=== PATIENT | female | born 1960 | race Caucasian/White ===

== ENCOUNTER 2017-07-20 19:51 | Inpatient (IN) | payer SELFPAY ==
[~2017-07-20] VITALS: Ht 154.9 cm; Wt 74.3 kg
[2017-07-20] VITALS (7 sets, daily range): BP systolic 171–185; BP diastolic 90–95; PULSE 68–87; RESP 16–24; TEMP 98.4; O2SAT 97–98
[2017-07-20] MEDS ORDERED: SODIUM CHLORIDE 0.9% FLUSH 10 ML FLUSH IVF PRN (20:00)
--- NOTE | 2017-07-20 20:11 | RADRPT ---
EXAM DATE/TIME: 07/20/2017 20:04 [facility] COMPARISON: No previous studies available for comparison. INDICATIONS : Right facial droop and weakness. RADIATION DOSE: 35.27 CTDIvol (mGy) MEDICAL HISTORY : Non-responsive. SURGICAL HISTORY : Non-responsive. ENCOUNTER: Initial ACUITY: 1 day PAIN SCALE: 0/10 LOCATION: cranial TECHNIQUE: Multiple contiguous axial images were obtained of the head. Using automated exposure control and adj ustment of the mA and/or kV according to patient size, radiation dose was kept as low as reasonably a chievable to obtain optimal diagnostic quality images. DICOM format image data is available electro nically for review and comparison. FINDINGS: CEREBRUM: The ventricles are normal for age. No evidence of midline shift, mass lesion, hemorrhage or acute in farction. No extra-axial fluid collections are seen. POSTERIOR FOSSA: The cerebellum and brainstem are intact. The 4th ventricle is midline. The cerebellopontine angle i s unremarkable. EXTRACRANIAL: The visualized portion of the orbits is intact. SKULL: The calvaria is intact. No evidence of skull fracture. CONCLUSION: No acute disease. No evidence of focal mass, edema or hemorrhage. Jack Mae MD on July 20, 2017 at 20:08 Board Certified Radiologist. This report was verified electronically.
--- NOTE | 2017-07-20 20:15 | PD ---
HPI Chief Complaint: cva Time Seen by Provider: 19:59 Travel History International Travel<30 days: No Contact w/Intl Traveler<30days: No Traveled to known affect area: No History of Present Illness HPI 57-year-old female presents to the emergency department by private transportation the care of family for evaluation of right-sided weakness since last evening. According the patient last evening patient started noticing that she was having some weakness of the right side and some balance/gait disturbance and dizziness. No headache no visual disturbance no change in mentation no change in speech or difficulty swallowing no chest pain no palpitations no shortness of breath no left upper extremity or left lower extremity numbness tingling or weakness. Patient stated this morning symptoms seem to have worsened and has had approximately 4 episodes of vomiting throughout the day with increased dizziness and then this evening around 7:15 fell after getting up from a nap and had difficulty attempting to get up without assistance. Patient has had difficulty using her right upper extremity and right hand. Patient is left-handed. Patient denies personal history of hypertension dyslipidemia CAD rhythm disturbance diabetes and admits to tobaccoism. Patient rarely consumes alcohol and has not had any alcohol the last several days. Niece who presents with the patient states she last saw her normal on Friday afternoon and this evening when she picked her up noticed for the first time a right facial droop. Patient's other niece last evening noticed that she was having balance disturbance in gait disturbance but patient put these symptoms off thinking she had a sinus infection. Patient's had no fever or chills. Patient denies other concerns or complaints. With fall this evening she did not hit her head did not have loss of consciousness did not injure her neck or does not experience any neck pain or back pain. FOR[facility]LY [facility] Past Medical History Narrative Medical Denies past medical history other than seasonal allergies and rhinosinusitis denies surgical history positive tobacco use rare alcohol use nursing notes reviewed Social History Tobacco Use: Yes Allergies-Medications (Allergen,Severity, Reaction): Coded Allergies: No Known Allergies (Unverified , 07/20/17) Reported Meds & Prescriptions Reported Meds & Active Scripts Active Review of Systems Except as stated in HPI: all other systems reviewed are Neg General / Constitutional: No: Fever, Chills Eyes: No: Diploplia, Blurred Vision, Photophobia, Blind Spots, Visual changes HENT: Positive: Lightheadedness, Congestion, No: Headaches, Vertigo, Neck Pain Cardiovascular: No: Chest Pain or Discomfort, Palpitations, Diaphoresis, Syncope Respiratory: No: Shortness of Breath Gastrointestinal: Positive: Nausea, Vomiting (x4), No: Hematemesis, Hematochezia Genitourinary: No: Dysuria, Flank Pain Musculoskeletal: No: Myalgias, Arthralgias Skin: No Rash Neurologic: Positive: Weakness, Dizziness, Focal Abnormalities (right upper extremity right lower extremity weakness with right facial droop), Ataxia, No: Syncope, Headache, Change in Mentation, Slurred Speech, Paresthesia Psychiatric: No: Anxiety Hematologic/Lymphatic: No: Easy Bruising Physical Exam Narrative GENERAL: Well-developed well-nourished female in no acute distress no respiratory distress; GCS 15; blood pressure 185/95; 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 HEAD: Atraumatic. Normocephalic. EYES: Pupils equal and round. Extraocular muscles intact. No scleral icterus. No injection or drainage. ENT: No nasal bleeding or discharge. Mucous membranes pink and moist. Airway is patent. Tongue is midline. Right facial droop. NECK: Trachea midline. No JVD. CARDIOVASCULAR: Regular rate and rhythm. RESPIRATORY: No accessory muscle use. Clear to auscultation. Breath sounds equal bilaterally. GASTROINTESTINAL: Abdomen soft, non-tender, nondistended. Hepatic and splenic margins not palpable. MUSCULOSKELETAL: Extremities without clubbing, cyanosis, or edema. No obvious deformities. NEUROLOGICAL: Awake and alert. GCS 15. No obvious cranial nerve deficits except right facial droop. Motor grossly within normal limits except for right upper extremity 4/5 and right lower extremity 4-5/ 5. Five out of 5 muscle strength in the (L) arm and (L) leg. Right upper extremity pronator drift. Right upper and lower extremity limb ataxia. Sensory exam intact. Normal speech. PSYCHIATRIC: Appropriate mood and affect; insight and judgment normal. Data Data Last Documented VS Orders Orders Electrocardiogram (07/20/17 19:59) Prothrombin Time / Inr (Pt) (07/20/17 19:59) Act Partial Throm Time (Ptt) (07/20/17 19:59) Complete Blood Count With Diff (07/20/17 19:59) Basic Metabolic Panel (Bmp) (07/20/17 19:59) Creatine Kinase (Cpk) (07/20/17 19:59) Troponin I (07/20/17 19:59) Urinalysis - C+S If Indicated (07/20/17 19:59) Ct Brain W/O Iv Contrast(Rout) (07/20/17 19:59) Chest, Single Ap (07/20/17 19:59) Ecg Monitoring (07/20/17 19:59) Iv Access Insert/Monitor (07/20/17 19:59) Oximetry (07/20/17 19:59) Sodium Chloride 0.9% Flush (Ns Flush) (07/20/17 20:00) Aspirin (Aspirin) (07/20/17 20:30) Sodium Chlor 0.9% 1000 Ml Inj (Ns 1000 M (07/20/17 20:30) Head Of Bed (07/20/17 20:22) Admit Order (Ed Use Only) (07/20/17 ) Silk Screen Operator / Telemetry [id number] (07/20/17 21:11) Activity Bed Rest (07/20/17 21:11) Notify Dr: Other (07/20/17 21:11) Consult Neurology (07/20/17 ) Labs Laboratory Tests Test 07/20/17 19:55 07/20/17 21:07 White Blood Count 10.6 TH/MM3 Red Blood Count 5.21 MIL/MM3 Hemoglobin 16.0 GM/DL Hematocrit 47.3 % Mean Corpuscular Volume 90.9 FL Mean Corpuscular Hemoglobin 30.8 PG Mean Corpuscular Hemoglobin Concent 33.9 % Red Cell Distribution Width 12.8 % Platelet Count 339 TH/MM3 Mean Platelet Volume 6.9 FL Neutrophils (%) (Auto) 80.6 % Lymphocytes (%) (Auto) 14.2 % Monocytes (%) (Auto) 4.5 % Eosinophils (%) (Auto) 0.2 % Basophils (%) (Auto) 0.5 % Neutrophils # (Auto) 8.5 TH/MM3 Lymphocytes # (Auto) 1.5 TH/MM3 Monocytes # (Auto) 0.5 TH/MM3 Eosinophils # (Auto) 0.0 TH/MM3 Basophils # (Auto) 0.0 TH/MM3 CBC Comment DIFF FINAL Differential Comment Prothrombin Time 10.3 SEC Prothromb Time International Ratio 1.0 RATIO Activated Partial Thromboplast Time 26.1 SEC Blood Urea Nitrogen 13 MG/DL Creatinine 0.95 MG/DL Random Glucose 118 MG/DL Calcium Level 9.7 MG/DL Sodium Level 138 MEQ/L Potassium Level 4.2 MEQ/L Chloride Level 103 MEQ/L Carbon Dioxide Level 26.4 MEQ/L Anion Gap 9 MEQ/L Estimat Glomerular Filtration Rate 61 ML/MIN Total Creatine Kinase 52 U/L Troponin I LESS THAN 0.02 NG/ML Urine Color YELLOW Urine Turbidity CLEAR Urine pH 5.0 Urine Specific Luana 1.012 Urine Protein NEG mg/dL Urine Glucose (UA) NEG mg/dL Urine Ketones NEG mg/dL Urine Occult Blood NEG Urine Nitrite NEG Urine Bilirubin NEG Urine Urobilinogen LESS THAN 2.0 MG/DL Urine Leukocyte Esterase TRACE Urine RBC 1 /hpf Urine WBC 2 /hpf Urine Squamous Epithelial Cells 2 /hpf Urine Bacteria RARE /hpf Microscopic Urinalysis Comment CATH-CULTURE IND Urine Opiates Screen NEG Urine Barbiturates Screen NEG Urine Amphetamines Screen NEG Urine Benzodiazepines Screen NEG Urine Cocaine Screen NEG Urine Cannabinoids Screen NEG MDM Medical Decision Making Medical Screen Exam Complete: Yes Emergency Medical Condition: Yes Medical Record Reviewed: Yes Interpretation(s) EKG: Normal sinus rhythm rate 72 left anterior fascicular block no acute ST elevation injury pattern or ectopy noted CBC & BMP Diagram 07/20/17 19:[address] 07/20/171958 Signed Impressions: Service Date/Time: Thursday, July 20, 2017 20:04 - CONCLUSION: No acute disease. No evidence of focal mass, edema or hemorrhage. Jack Mae MD Vital Signs Date Time Temp Pulse Resp B/P (MAP) Pulse Ox O2 Delivery O2 Flow Rate FiO2 07/20/17 20:23 72 16 171/91 (117) Room Air 97 07/20/17 20:05 86 17 177/94 (121) Room Air 96 07/20/17 19:54 98.4 87 17 185/95 (125) 97 Differential Diagnosis CVA-acute versus subacute, hypertensive urgency, arrhythmia Narrative Course @ 19:59 57-year-old female presents with new onset right-sided weakness affecting the right upper extremity and right lower extremity with right upper extremity pronator drift and right upper and lower extremity limb ataxia as well as right facial droop; weakness and balance disturbance onset last evening with persistent symptoms today with fall this evening at 7:15 PM after awakening from nap, niece at bedside noted facial droop this evening but hasn't seen patient since Friday; reports other family members noted gait and balance disturbance since yesterday. Patient's had no headache but has had dizziness and nausea and vomiting x 4 throughout the day; patient reports symptoms since last night. Patient sent for stat CT brain noncontrast. In view of onset of symptoms last evening is outside therapeutic window for thrombolytics; NIHSS:5, partial paralysis of lower face, right upper extremity drift, slight right lower extremity drift, RUE/RLE limb ataxia. @ 20:[address] exam unchanged; BP: 178/88. Patient with family at bedside informed CT brain noncontrast reveals no acute abnormality; clinically patient has presented with right facial droop and right- sided weakness for acute/subacute CVA. EKG was sinus rhythm rate 70 to left anterior fascicular block no acute ST elevation injury pattern or ectopy noted. Patient's case has been discussed with neurology and patient is not a thrombolytic candidate in view of duration of symptoms. Patient will be started on aspirin 325 mg first dose now, maintained with head of bed flat, maintenance IV fluids normal saline at 70 cc per hour, and will be admitted to medicine service with consult to neurology and MR studies in the a.m. Discussed with [facility] MD, Dr Dodd, for admission Physician Communication Physician Communication Call placed to Neurology --Dr Vallejo -- not tpa candidate --start aspirin 325 now , neurology consult and MR studies in the AM; accepted by [facility] service for admission Diagnosis Primary Impression: CVA (cerebral vascular accident) Admitting Information Admitting Physician Requests: Admit Scripts Aspirin (Px Aspirin) 325 Mg Tab 325 MG PO DAILY for Prevent Blood Clot, #30 TAB Prov: Dale Taveras MD 07/23/17 Atorvastatin (Lipitor) 10 Mg Tab 10 MG PO HS for Cholesterol Management, #30 TAB Prov: Dale Taveras MD 07/23/17 June Mejias MD Jul 20, 2017 20:15
[2017-07-20 20:19] LABS: AUTOMATED NEUTROPHIL # 8.5 TH/MM3 (1.8-7.7); BASOPHIL % 0.5 % (0.0-2.0); EOSINOPHIL % 0.2 % (0.0-4.0); HEMATOCRIT 47.3 % (35.0-46.0); LYMPH % 14.2 % (9.0-44.0); LYMPHOCYTE # 1.5 TH/MM3 (1.0-4.8); MEAN CELL VOLUME 90.9 FL (80.0-100.0); MEAN CORPUSCULAR HEMOGLOBIN 30.8 PG (27.0-34.0); MEAN CORPUSCULAR HGB CONC 33.9 % (32.0-36.0); MEAN PLATELET VOLUME 6.9 FL (7.0-11.0); MONO % 4.5 % (0.0-8.0); MONOCYTE # 0.5 TH/MM3 (0-0.9); NEUT % 80.6 % (16.0-70.0); PLATELET COUNT 339 TH/MM3 (150-450); RED BLOOD COUNT 5.21 MIL/MM3 (4.00-5.30); RED CELL DISTRIBUTION WIDTH 12.8 % (11.6-17.2); WHITE BLOOD COUNT 10.6 TH/MM3 (4.0-11.0)
[2017-07-20] MEDS ORDERED: ASPIRIN 325 MG TAB PO ONE (20:30)
[2017-07-20] MEDS ORDERED: SODIUM CHLOR 0.9% 1000 ML INJ 1,000 ML IV SCH (20:30)
--- NOTE | 2017-07-20 20:37 | RADRPT ---
EXAM DATE/TIME: 07/20/2017 20:05 [facility] COMPARISON: No previous studies available for comparison. INDICATIONS : Possible stroke. MEDICAL HISTORY : None. SURGICAL HISTORY : None. ENCOUNTER: Initial ACUITY: 1 day PAIN SCORE: 0/10 LOCATION: Bilateral chest FINDINGS: A single view of the chest demonstrates the lungs to be symmetrically aerated without evidence of mas s, infiltrate or effusion. The cardiomediastinal contours are unremarkable. Osseous structures are intact. CONCLUSION: No acute disease. Jack Mae MD on July 20, 2017 at 20:34 Board Certified Radiologist. This report was verified electronically.
[2017-07-20 20:45] LABS: BICARBONATE 26.4 MEQ/L (21.0-32.0); BLOOD UREA NITROGEN 13 MG/DL (7-18); CALCIUM 9.7 MG/DL (8.5-10.1); CHLORIDE 103 MEQ/L (98-107); CREATININE 0.95 MG/DL (0.50-1.00); GLOMERULAR FILTRATION RATE 61 ML/MIN (>89); GLUCOSE,RANDOM 118 MG/DL (74-106); SODIUM (NA) 138 MEQ/L (136-145)
[2017-07-20 20:50] LABS: TROPONIN I LESS THAN 0.02 NG/ML (0.02-0.05)
[2017-07-20 21:10] LABS: PROTHROMBIN TIME - PATIENT 10.3 SEC (9.8-11.6)
[2017-07-20] MEDS: SODIUM CHLOR 0.9% 1000 ML INJ 1,000 ML IV SCH (21:12)
[2017-07-20] MEDS ORDERED: LACTULOSE SYRUP 20 GM/30 ML CUP PO PRN (21:15)
[2017-07-20] MEDS ORDERED: BISACODYL 10 MG SUPP RECTAL PRN (21:15)
[2017-07-20] MEDS ORDERED: MAGNESIUM HYDROXIDE SUSP 30 ML CUP PO PRN (21:15)
[2017-07-20] MEDS ORDERED: SODIUM CHLORIDE 0.9% FLUSH 10 ML FLUSH IV FLUSH PRN (21:15)
[2017-07-20] MEDS ORDERED: SENNOSIDES 8.6 MG TAB PO PRN (21:15)
[2017-07-20] MEDS ORDERED: ENALAPRILAT 1.25 MG/ML VIAL IV PUSH PRN (21:15)
[2017-07-20] MEDS ORDERED: ONDANSETRON HCL 4 MG/2 ML VIAL IVP PRN (21:15)
[2017-07-20] MEDS ORDERED: GLUCAGON 1 MG/ML VIAL OTHER PRN (21:15)
[2017-07-20] MEDS ORDERED: DEXTROSE 50% IN WATER 50 ML VIAL(D50) IV PUSH PRN (21:15)
--- NOTE | 2017-07-20 21:16 | HHI.HP ---
HPI Service [facility] Primary Care Physician No Primary Care Physician Admission Diagnosis CVA Diagnoses: (1) CVA (cerebral vascular accident) Diagnosis: Principal (2) HTN (hypertension) Diagnosis: Principal (3) Dehydration Diagnosis: Principal (4) Tobacco abuse Diagnosis: Principal Travel History International Travel<30 Days: No Contact w/Intl Traveler <30 Da: No Traveled to Known Affected Are: No History of Present Illness This is a 57-year-old left-handed female with no significant PMH who was brought to the ER by family for evaluation of right-sided weakness and facial droop. Per pt, episode of right-sided weakness and gait imbalance last night. Today, reports progression of symptoms w/ worsening right-sided weakness and subsequent fall. No head trauma or LOC. Noted by family to have right facial droop. Unclear time of symptom onset, believes last normal 07/19/17. No h/o similar symptoms in the past. +tobacco abuse. On arrival, BP 185/95, HR 87, O2 sat 97% on RA, Afebrile. CBC unremarkable except for mild hemoconcentration , hemoglobin 16. Chemistry unremarkable except for GFR 61. Troponin negative. INR 1.0. UA negative. CXR with no acute findings. CT Head negative. Dr. Vallejo consulted by ER physician, patient is not a TPA candidate as she is outside the window. Review of Systems Except as stated in HPI: all other systems reviewed are Neg ROS: 14 point review of systems otherwise negative. Past Family Social History Past Medical History PMH: None Past Surgical History PAST SURGICAL HISTORY: Tonsillectomy, Benign Breast Mass Resection Allergies: Coded Allergies: No Known Allergies (Unverified , 07/20/17) Family History PAST FAMILY HISTORY: Reviewed. No h/o DM or CAD Social History PAST SOCIAL HISTORY: Negative for alcohol or drugs. Positive for tobacco. Physical Exam Vital Signs Vital Signs Date Time Temp Pulse Resp B/P (MAP) Pulse Ox O2 Delivery O2 Flow Rate FiO2 07/20/17 20:58 70 18 184/91 (122) Room Air 98 07/20/17 20:35 77 16 97 Room Air 07/20/17 20:34 16 97 Room Air 07/20/17 20:23 72 16 171/91 (117) Room Air 97 07/20/17 20:05 86 17 177/94 (121) Room Air 96 07/20/17 19:54 98.4 87 17 185/95 (125) 97 Physical Exam PE: GENERAL: Middle-aged female in no acute distress. HEENT: PERRLA, EOMI. No scleral icterus or conjunctival pallor. No lid lag. + right-sided facial droop. CARDIOVASCULAR: Regular rate and rhythm. No obvious murmurs to auscultation. No chest tenderness to palpation. RESPIRATORY: No obvious rhonchi or wheezing. Clear to auscultation. Breath sounds equal bilaterally. GASTROINTESTINAL: Abdomen soft, non-tender, nondistended. BS normal. MUSCULOSKELETAL: Extremities without clubbing, cyanosis, or edema. No obvious deformities. NEUROLOGICAL: Awake, alert and oriented x4. RUE/RLE 4/5, LUE/LLE 5/5. +facial droop as above. Laboratory Laboratory Tests Test 07/20/17 19:55 White Blood Count 10.6 Red Blood Count 5.21 Hemoglobin 16.0 Hematocrit 47.3 Mean Corpuscular Volume 90.9 Mean Corpuscular Hemoglobin 30.8 Mean Corpuscular Hemoglobin Concent 33.9 Red Cell Distribution Width 12.8 Platelet Count 339 Mean Platelet Volume 6.9 Neutrophils (%) (Auto) 80.6 Lymphocytes (%) (Auto) 14.2 Monocytes (%) (Auto) 4.5 Eosinophils (%) (Auto) 0.2 Basophils (%) (Auto) 0.5 Neutrophils # (Auto) 8.5 Lymphocytes # (Auto) 1.5 Monocytes # (Auto) 0.5 Eosinophils # (Auto) 0.0 Basophils # (Auto) 0.0 CBC Comment DIFF FINAL Differential Comment Prothrombin Time 10.3 Prothromb Time International Ratio 1.0 Activated Partial Thromboplast Time 26.1 Blood Urea Nitrogen 13 Creatinine 0.95 Random Glucose 118 Calcium Level 9.7 Sodium Level 138 Potassium Level 4.2 Chloride Level 103 Carbon Dioxide Level 26.4 Anion Gap 9 Estimat Glomerular Filtration Rate 61 Total Creatine Kinase 52 Troponin I LESS THAN 0.02 Result Diagram: 07/20/17195407/20/171954 Caprini VTE Risk Assessment Caprini VTE Risk Assessment: No/Low Risk (score <= 1) Caprini Risk Assessment Model Point Value = 1 Point Value = 2 Point Value = 3 Point Value = 5 Age 41-60 Minor surgery BMI > 25 kg/m2 Swollen legs Varicose veins or History of unexplained or recurrent spontaneous Oral contraceptives or hormone replacement Sepsis (< 1 month) Serious lung disease, including pneumonia (< 1 month) Abnormal pulmonary function Acute myocardial infarction Congestive heart failure (< 1 month) History of inflammatory bowel disease Medical patient at bed rest Age 61-74 Arthroscopic surgery Major open surgery (> 45 min) Laparoscopic surgery (> 45 min) Malignancy Confined to bed (> 72 hours) Immobilizing plaster cast Central venous access Age >= 75 History of VTE Family history of VTE Factor V Leiden Prothrombin [id number] Lupus anticoagulant Anticardiolipin antibodies Elevated serum homocysteine Heparin-induced thrombocytopenia Other congenital or acquired thrombophilia Stroke (< 1 month) Elective arthroplasty Hip, pelvis, or leg fracture Acute spinal cord injury (< 1 month) Prophylaxis Regimen Total Risk Factor Score Risk Level Prophylaxis Regimen 0-1 Low Early ambulation 2 Moderate Order ONE of the following: *Sequential Compression Device (SCD) *Heparin 5000 units SQ BID 3-4 Higher Order ONE of the following medications: *Heparin 5000 units SQ TID *Enoxaparin/Lovenox 40 mg SQ daily (WT < 150 kg, CrCl > 30 mL/min) *Enoxaparin/Lovenox 30 mg SQ daily (WT < 150 kg, CrCl > 10-29 mL/min) *Enoxaparin/Lovenox 30 mg SQ BID (WT < 150 kg, CrCl > 30 mL/min) AND/OR *Sequential Compression Device (SCD) 5 or more Highest Order ONE of the following medications: *Heparin 5000 units SQ TID (Preferred with Epidurals) *Enoxaparin/Lovenox 40 mg SQ daily (WT < 150 kg, CrCl > 30 mL/min) *Enoxaparin/Lovenox 30 mg SQ daily (WT < 150 kg, CrCl > 10-29 mL/min) *Enoxaparin/Lovenox 30 mg SQ BID (WT < 150 kg, CrCl > 30 mL/min) AND *Sequential Compression Device (SCD) Assessment and Plan Problem List: (1) CVA (cerebral vascular accident) ICD Code: I63.9 - Cerebral infarction, unspecified Status: Acute (2) HTN (hypertension) ICD Code: I10 - Essential (primary) hypertension (3) Dehydration ICD Code: E86.0 - Dehydration (4) Tobacco abuse ICD Code: Z72.0 - Tobacco use Assessment and Plan A/P: 1. CVA: right-sided weakness, right facial droop starting 07/19/17, +ongoing symptoms. CT Head w/ no acute findings, images reviewed by me. Dr. Vallejo consulted, outside TPA window, will eval in am. Check MRI/MRA to eval for underlying stroke, Check Echo to eval for possible thromboembolic event, Check Lipid profile, Hgb A1c, UDS. NPO, IVF, HOB flat, Consult PT/Speech for eval/ tx. Neuro checks. ASA, Statin. 2. HTN: BP 180's on arrival, allow for permissive HTN in light of acute CVA. Antihypertensives prn for BP >220 systolic. Monitor closely. 3. Dehydration: GFR 61, U/a negative for UTI. IVF for hydration, repeat labs in am. 4. Tobacco Abuse: Pt counselled. Ativan prn. No NicoDerm to avoid vasoconstriction. 5. DVT Prophylaxis: SCD/Teds. 6. Social work for d/c planning as needed. 7. Labs/imaging/records reviewed by me. Case discussed at length w/ ER physician. Physician Certification 2 Midnight Certification Type: Admission for Inpatient Services Order for Inpatient Services The services are ordered in accordance with Medicare regulations or non- Medicare payer requirements, as applicable. In the case of services not specified as inpatient-only, they are appropriately provided as inpatient services in accordance with the 2-midnight benchmark. Estimated LOS (days): 2 days is the estimated time the patient will need to remain in the hospital, assuming treatment plan goals are met and no additional complications. Post-Hospital Plan: Not yet determined Cristela Dodd MD Jul 20, 2017 21:16
[2017-07-20 21:25] LABS: BACTERIA, URINE RARE /hpf; BILIRUBIN, URINE NEG (NEG); BLOOD, URINE NEG (NEG); GLUCOSE,URINE NEG (NEG); KETONE, URINE NEG (NEG); NITRITE,URINE NEG (NEG); SQUAMOUS EPITHELIAL CELL URINE 2 /hpf (0-5); URINE COLOR YELLOW (YELLW/STRAW); URINE LEUKOCYTE ESTERASE TRACE (NEG)
[2017-07-21] VITALS (7 sets, daily range): BP systolic 144–170; BP diastolic 78–84; PULSE 68–82; RESP 17–20; TEMP 97.6–98.5; O2SAT 92–97
[2017-07-21] MEDS ORDERED: ACETAMINOPHEN 1000 MG/100 ML 65 ML IV ONE (04:30)
[2017-07-21] MEDS: INSULIN ASPART SUPPLEMENTAL SCALE SQ SCH ×5 (07:33→21:00)
[2017-07-21] MEDS: SODIUM CHLORIDE 0.9% FLUSH 10 ML FLUSH IV FLUSH SCH ×3 (07:34→21:00)
[2017-07-21] MEDS: ASPIRIN 325 MG TAB PO SCH ×2 (07:34→14:34)
[2017-07-21] MEDS: DOCUSATE SODIUM 50 MG/SENNA 8.6 MG TAB PO SCH ×2 (07:34→21:00)
[2017-07-21 07:45] LABS: BASOPHIL % 0.3 % (0.0-2.0); EOSINOPHIL % 0.2 % (0.0-4.0); HEMATOCRIT 41.3 % (35.0-46.0); LYMPHOCYTE # 1.4 TH/MM3 (1.0-4.8); MEAN CELL VOLUME 90.5 FL (80.0-100.0); MEAN CORPUSCULAR HEMOGLOBIN 30.6 PG (27.0-34.0); MEAN CORPUSCULAR HGB CONC 33.8 % (32.0-36.0); MEAN PLATELET VOLUME 7.1 FL (7.0-11.0); MONO % 4.8 % (0.0-8.0); MONOCYTE # 0.5 TH/MM3 (0-0.9); NEUT % 80.7 % (16.0-70.0); PLATELET COUNT 290 TH/MM3 (150-450); RED BLOOD COUNT 4.56 MIL/MM3 (4.00-5.30); WHITE BLOOD COUNT 9.9 TH/MM3 (4.0-11.0)
[2017-07-21 08:16] LABS: ALBUMIN 3.7 GM/DL (3.4-5.0); ALKALINE PHOSPHATASE 73 U/L (45-117); ALT (GPT) 15 U/L (10-53); AST (GOT) 7 U/L (15-37); BICARBONATE 27.6 MEQ/L (21.0-32.0); BLOOD UREA NITROGEN 14 MG/DL (7-18); CALCIUM 8.8 MG/DL (8.5-10.1); CHLORIDE 105 MEQ/L (98-107); CHOLESTEROL 196 MG/DL (120-200); CHOLESTEROL/ HDL RATIO 3.46 RATIO; CREATININE 0.74 MG/DL (0.50-1.00); GLOMERULAR FILTRATION RATE 81 ML/MIN (>89); GLUCOSE,RANDOM 102 MG/DL (74-106); HDL CHOLESTEROL 56.6 MG/DL (40.0-60.0); LDL CHOLESTEROL 127 MG/DL (0-99); SODIUM (NA) 140 MEQ/L (136-145); TOTAL BILIRUBIN ADULT 0.7 MG/DL (0.2-1.0); TOTAL PROTEIN 7.2 GM/DL (6.4-8.2); TRIGLYCERIDES 60 MG/DL (42-150)
[2017-07-21] MEDS ORDERED: LORazepam 2 MG/ML VIAL IV PUSH ONE ×2 (09:15→11:30)
[2017-07-21] MEDS: SODIUM CHLOR 0.9% 1000 ML INJ 1,000 ML IV SCH ×2 (10:38→19:00)
--- NOTE | 2017-07-21 11:58 | RADRPT ---
EXAM DATE/TIME: 07/21/2017 11:13 [facility] COMPARISON: No previous studies available for comparison. INDICATIONS : Right sided numbness. MEDICAL HISTORY : None. SURGICAL HISTORY : Tonsillectomy. Rt breast lumpectomy ENCOUNTER: Subsequent ACUITY: 2 day PAIN SCORE: 0/10 LOCATION: cranial Please note a normal MRA of the brain does not entirely exclude the possibility of a small aneurysm, nor the possibility of distal intracranial vessel disease. TECHNIQUE: 3D time of flight MRA was performed. Source images, multiplanar STS MIP, and 3D volum e MIP reconstructions were reviewed. FINDINGS: There is excellent visualization of the major intracranial arteries out to the second-order branch ve ssels. There is no evidence for aneurysm, vessel truncation or stenosis, and no evidence for vascula r malformation. CONCLUSION: Negative MRA of the brain. Nikhil García MD FACR on July 21, 2017 at 11:53 Board Certified Radiologist. This report was verified electronically.
--- NOTE | 2017-07-21 12:24 | RADRPT ---
EXAM DATE/TIME: 07/21/2017 11:13 [facility] COMPARISON: No previous studies available for comparison. INDICATIONS : Right sided numbness. MEDICAL HISTORY : None. SURGICAL HISTORY : Tonsillectomy. Rt breast lumpectomy. ENCOUNTER: Subsequent ACUITY: 2 day PAIN SCORE: 0/10 LOCATION: cranial TECHNIQUE: Multiplanar, multisequence MRI of the brain was performed without contrast. FINDINGS: There are 2 focal areas of restricted diffusion left hemisphere. One involves the left posterior meme lamus including the posterior limb of internal capsule. The second anteriorly sparing the anterior l imb of the internal capsule. The right hemisphere is unremarkable There is no parenchymal hemorrhage associated with this. 2 punctate focal hemosiderin deposits left hemisphere above the ischemic changes. Ventricle size is appropriate. Mild periventricular white matter changes are noted. No extra-axial fluid collection appreciated. CONCLUSION: Restricted diffusion thalamus left side consistent with acute ischemic event These are 2 separate areas. Nikhil García MD FACR on July 21, 2017 at 12:19 Board Certified Radiologist. This report was verified electronically.
--- NOTE | 2017-07-21 12:59 | HHI.PR ---
Subjective Remarks Follow-up CVA. Currently sedated easily arousable following simple commands. Patient received Ativan 2 mg during MRI. Discussed with RN Objective Vitals Vital Signs Date Time Temp Pulse Resp B/P (MAP) Pulse Ox O2 Delivery O2 Flow Rate FiO2 07/21/17 08:04 96 21 07/21/17 08:00 98.3 75 20 169/80 (109) 92 07/21/17 04:37 97.9 77 18 144/78 (100) 96 07/21/17 01:44 97.6 68 17 164/79 (107) 97 07/20/17 22:12 07/20/17 21:55 68 24 176/90 (118) Room Air 96 07/20/17 21:29 98 07/20/17 20:58 70 18 184/91 (122) Room Air 98 07/20/17 20:35 77 16 97 Room Air 07/20/17 20:34 16 97 Room Air 07/20/17 20:23 72 16 171/91 (117) Room Air 97 07/20/17 20:05 86 17 177/94 (121) Room Air 96 07/20/17 19:54 98.4 87 17 185/95 (125) 97 I/O 07/20/17 07/20/17 07/20/17 07/21/17 07/21/17 07/21/17 07:00 15:00 23:00 07:00 15:00 23:00 Intake Total 720 ml Balance 720 ml Intake IV Total 720 ml Result Diagram: 07/21/17 0652 07/21/17 0652 Imaging Last Impressions Head Magnetic Resonance Angiography 07/21/17 0000 Signed Impressions: Service Date/Time: Friday, July 21, 2017 11:13 - CONCLUSION: Negative MRA of the brain. Nikhil García MD FACR Brain MRI 07/21/17 0000 Signed Impressions: Service Date/Time: Friday, July 21, 2017 11:13 - CONCLUSION: Restricted diffusion thalamus left side consistent with acute ischemic event These are 2 separate areas. Nikhil García MD FACR Head CT 07/20/171958 Signed Impressions: Service Date/Time: Thursday, July 20, 2017 20:04 - CONCLUSION: No acute disease. No evidence of focal mass, edema or hemorrhage. Jack Mae MD Chest X-Ray 07/20/171958 Signed Impressions: Service Date/Time: Thursday, July 20, 2017 20:05 - CONCLUSION: No acute disease. Jack Mae MD Objective Remarks GENERAL: Middle-aged female in no acute distress. HEENT: PERRLA, EOMI. No scleral icterus or conjunctival pallor. No lid lag. + right-sided facial droop. CARDIOVASCULAR: Regular rate and rhythm. No obvious murmurs to auscultation. No chest tenderness to palpation. RESPIRATORY: No obvious rhonchi or wheezing. Clear to auscultation. Breath sounds equal bilaterally. GASTROINTESTINAL: Abdomen soft, non-tender, nondistended. BS normal. MUSCULOSKELETAL: Extremities without clubbing, cyanosis, or edema. No obvious deformities. NEUROLOGICAL: Sedated easily arousable following simple commands. Right facial droop. Weak right upper and right lower extremities. Procedures none A/P Problem List: (1) CVA (cerebral vascular accident) ICD Code: I63.9 - Cerebral infarction, unspecified Status: Acute (2) HTN (hypertension) ICD Code: I10 - Essential (primary) hypertension (3) Dehydration ICD Code: E86.0 - Dehydration (4) Tobacco abuse ICD Code: Z72.0 - Tobacco use Assessment and Plan 1. CVA: right-sided weakness, right facial droop starting 07/19/17, +ongoing symptoms. CT Head w/ no acute findings, images reviewed by me. Dr. Vallejo consulted, outside TPA window. MRI with left thalamic ischemic event. LDL 127. A1c 5. Continue stroke workup and follow-up echocardiogram and monitor on telemetry. Continue aspirin and statin. Permissive hypertension 2. HTN: BP 180's on arrival, allow for permissive HTN in light of acute CVA. Antihypertensives prn for BP >220 systolic. Monitor closely. 3. Dehydration: GFR 61, U/a negative for UTI. IVF for hydration, repeat labs in am. 4. Tobacco Abuse: Pt counselled. Ativan prn. No NicoDerm to avoid vasoconstriction. 5. Toxic encephalopathy after receiving Ativan prior to MRI. Neurochecks DVT Prophylaxis: SCD/Teds. Pharmacological prophylaxis if okay with neurology Discharge Planning Not ready for discharge stroke workup underway Dale Taveras MD Jul 21, 2017 12:59
--- NOTE | 2017-07-21 15:17 | RADRPT ---
EXAM DATE/TIME: 07/21/2017 12:39 [facility] COMPARISON: No previous studies available for comparison. INDICATIONS : Stenosis. MEDICAL HISTORY : CVA. Migraines. Respiratory disorders. Tobacco use. SURGICAL HISTORY : Tonsillectomy. Fatty breast mass removed. ENCOUNTER: Initial ACUITY: 1 day PAIN SCORE: 0/10 LOCATION: Bilateral neck PEAK SYSTOLIC VELOCITIES (cm/sec): ICA/CCA RATIO: Right: 1.5 Left: 0.9 ICA: Right: 109 Left: 72 CCA: Right: 72 Left: 81 ECA: Right: 117 Left: 69 VERTEBRAL: Right: 55 antegrade Left: 54 antegrade Elevated flow velocities and ICA/CCA ratios have been found to correlate with increased degrees of vessel stenosis, calculated as percentage of diameter relative to a normal segment of distal ICA/CCA FINDINGS: RIGHT CAROTID: Mild calcified plaque is identified in the right carotid bifurcation and origin of the internal carot id artery. No significant stenosis is visualized. The waveforms are within normal limits. LEFT CAROTID: No significant stenosis is visualized. The waveforms are within normal limits. VERTEBRAL ARTERIES: Antegrade flow is seen in both vertebral arteries. MISCELLANEOUS: None. CONCLUSION: 1. Mild calcified plaque right carotid bifurcation. 2. No evidence of hemodynamically significant stenosis. 3. Antegrade flow both vertebral arteries. Jack Mae MD on July 21, 2017 at 15:13 Board Certified Radiologist. This report was verified electronically.
--- NOTE | 2017-07-21 16:43 | ECHRPT ---
Indication: CVA/TIA CONCLUSIONS The left ventricular systolic function is normal with an estimated ejection fraction in the range of 60-65%. Normal left ventricular size. Wall thickness is normal. No regional wall motion abnormalities are present. BP: 144 / 78 HR: 77 Rhythm: Sinus MEASUREMENTS (Male / Female) Normal Values Technical Quality:Poor 2D ECHO LV Diastolic Diameter PLAX 4.2 cm 4.2 - 5.9 / 3.9 - 5.3 cm LV Systolic Diameter PLAX 2.9 cm IVS Diastolic Thickness 1.1 cm 0.6 - 1.0 / 0.6 - 0.9 cm LVPW Diastolic Thickness 1.1 cm 0.6 - 1.0 / 0.6 - 0.9 cm LV Relative Wall Thickness 0.5 RV Internal Dim ED PLAX 1.9 cm LVOT Diameter 1.9 cm LV Ejection Fraction MOD 4C 64.0 % LV Cardiac Index MOD 4C 2384.0 cm/minm LV Ejection Fraction 4C AL 66.1 % LV Cardiac Index 4C AL 2548.9 cm/minm M-MODE Aortic Root Diameter MM 2.6 cm LA Systolic Diameter MM 2.7 cm LA Ao Ratio MM 1.0 AV Cusp Separation MM 1.9 cm DOPPLER AV Peak Velocity 156.0 cm/s AV Peak Gradient 9.7 mmHg LVOT Peak Velocity 105.0 cm/s LVOT Peak Gradient 4.4 mmHg AV Area Cont Eq pk 1.9 cm MV Area PHT 3.3 cm Mitral E Point Velocity 63.2 cm/s Mitral A Point Velocity 101.0 cm/s Mitral E to A Ratio 0.6 LV E' Lateral Velocity 8.8 cm/s Mitral E to LV E' Lateral Ratio 7.2 LV E' Septal Velocity 8.1 cm/s Mitral E to LV E' Septal Ratio 7.8 PV Peak Velocity 106.0 cm/s PV Peak Gradient 4.5 mmHg FINDINGS LEFT VENTRICLE The left ventricular systolic function is normal with an estimated ejection fraction in the range of 60-65%. Normal left ventricular size. Wall thickness is normal. No regional wall motion abnormalities are present. RIGHT VENTRICLE Normal right ventricular size and systolic function. LEFT ATRIUM The left atrial size is normal. RIGHT ATRIUM The right atrial size is normal. ATRIAL SEPTUM Normal atrial septal thickness without atrial level shunting by limited color doppler interrogation. AORTA The aortic root and proximal ascending aorta are normal in size on limited imaging. MITRAL VALVE Structurally normal mitral valve. No mitral valve stenosis or regurgitation. AORTIC VALVE Trileaflet aortic valve. No aortic valve stenosis or regurgitation. TRICUSPID VALVE Structurally normal tricuspid valve. No tricuspid valve stenosis or regurgitation. PULMONARY VALVE The pulmonary valve is not well visualized. VESSELS The inferior vena cava is normal in size. PERICARDIUM No pericardial effusion. Bashir Ortiz MD, FACC (Electronically Signed) Final Date:21 July 2017 16:42
--- NOTE | 2017-07-21 18:17 | EKG ---
Date Performed: 07/20/2017 Time Performed: 20:15:55 PTAGE: 57 years EKG: Sinus rhythm PATTERN CONSISTENT WITH PULMONARY DISEASE LEFT ANTERIOR FASCICULAR BLOCK ABNORMAL ECG NO PREVIOUS TRACING DOCTOR: Ling Oconnell Interpretating Date/Time 07/21/2017 18:16:02
[2017-07-21] MEDS ORDERED: SODIUM CHLORIDE 0.9% FLUSH 10 ML FLUSH IV FLUSH PRN (19:00)
[2017-07-21] MEDS ORDERED: DEXTROSE 50% IN WATER 50 ML VIAL(D50) IV PUSH PRN (19:00)
[2017-07-21] MEDS ORDERED: GLUCAGON 1 MG/ML VIAL OTHER PRN (19:00)
--- NOTE | 2017-07-21 20:17 | RADRPT ---
EXAM DATE/TIME: 07/21/2017 19:55 [facility] COMPARISON: CT BRAIN W/O CONTRAST, July 20, 2017, 20:04. MRI BRAIN W/O CONTRAST, July 21, 2017, 11:13. INDICATIONS : Right side numbness ,stroke RADIATION DOSE: 36.49 CTDIvol (mGy) MEDICAL HISTORY : Cerebrovascular disease. SURGICAL HISTORY : Tonsillectomy. Right lumpectomy ENCOUNTER: Initial ACUITY: 1 day PAIN SCALE: 0/10 LOCATION: cranial TECHNIQUE: Multiple contiguous axial images were obtained of the head. Using automated exposure control and adj ustment of the mA and/or kV according to patient size, radiation dose was kept as low as reasonably a chievable to obtain optimal diagnostic quality images. DICOM format image data is available electro nically for review and comparison. FINDINGS: CEREBRUM: There is a stable 12 mm hypodensity in the posterior left centrum semiovale region without evidence o f hemorrhage. No acute hemorrhage is identified. No new stroke is seen. POSTERIOR FOSSA: The cerebellum and brainstem are intact. The 4th ventricle is midline. The cerebellopontine angle i s unremarkable. EXTRACRANIAL: The visualized portion of the orbits is intact. SKULL: The calvaria is intact. No evidence of skull fracture. CONCLUSION: Stable hypodensity in the left centrum semiovale region. No evidence of acute hemorrhage or significa nt edema. Mild prominence of the basilar tip is stable from the previous study and normal on the MRA. Bashir Sky MD on July 21, 2017 at 20:11 Board Certified Radiologist. This report was verified electronically.
--- NOTE | 2017-07-21 20:20 | MB ---
cc: ROMAIN GREGORIO MD PHD DATE OF CONSULTATION: 07/21/2017 REASON FOR CONSULTATION: Stroke. HISTORY OF PRESENT ILLNESS Ms. Perez is a 57-year-old female who presented to the ER yesterday with onset of right-sided weakness, which started the evening before. She presented to the emergency room. I discussed the case with Dr. Mejias in the emergency room last night. She was found to have a right facial droop, weakness in the right arm and right leg. She was out of the time window for consideration for either TPA or intervention. She was placed on aspirin. This afternoon she reported increasing weakness of the right arm and right leg. PAST MEDICAL HISTORY: Otherwise unremarkable. PAST SURGICAL HISTORY: History of tonsillectomy. Benign breast mass resection. MEDICATIONS ON ADMISSION: None. ALLERGIES: None known. NEUROLOGIC EXAMINATION Her blood pressure is 146/84, pulse 82, respiratory rate is 19, temperature 98 degrees. Higher cortical function: Alert. Speech dysarthric. Cranial nerves: She has a right upper motor neuron VII palsy. The pupils are equal and reactive. The extraocular movements intact. On motor exam, she is very weak in the right arm and right leg rated at about 1/5 for both. Normal strength on the left. Reflexes are 2+ symmetric. IMAGING STUDIES: CT of the brain done yesterday in the ER was unremarkable. MRI of the brain done today showed restricted diffusion thalamus left side consistent with acute stroke. There is a second area of restricted diffusion in the posterior limb of the internal capsule. Right hemisphere is normal. There is no hemorrhage present. MRA of the brain is normal. LABORATORY DATA White count 9,900, hemoglobin 14, hematocrit 41%, platelets 290,000. The PT 10.3, INR 1. APTT 26.1. Sodium is 140, potassium 4.0, chloride 105, CO2 27.9, the BUN is 14, creatinine 0.74, GFR is 81, glucose is 102, AST 7, ALT 15, LDL 127, cholesterol 196, triglycerides 60. EKG: sinus rhythm. IMPRESSION Left hemisphere stroke involving the thalamus as well as the posterior limb of the internal capsule with right-sided weakness now with increasing weakness. RECOMMENDATIONS Because of the increased weakness, will proceed with a stat CT of the brain, will keep her on aspirin therapy and IV fluids. I would like to make her n.p.o. Keep her head of bed flat for the evening. MD JERI Buchanan/SASHA /6:40 PM /7:58 PM
--- NOTE | 2017-07-21 20:27 | HHI.PR ---
Review/Management Diagnosis Left CVA Plan keep at bedrest with hob flat overnight Diagnosis/Plan: Subjective Subjective Comments No change in RUE or RLE strength Active Medications Current Medications Medications (Trade) Dose Ordered Sig/Shamika Route Start Time Stop Time Status Last Admin (NS Flush) 2 ml BID IV FLUSH 07/21/17 09:00 (NS Flush) 2 ml UNSCH PRN IV FLUSH 07/20/17 21:15 Sodium Chloride 1,000 ml @ 70 mls/hr [id number] IV 07/20/17 21:12 07/21/17 10:38 (Vasotec Inj) 1.25 mg Q4H PRN IV PUSH 07/20/17 21:15 (Aspirin) 325 mg DAILY PO 07/21/17 09:00 07/21/17 14:34 (Pravachol) 40 mg HS PO 07/21/17 21:00 (NovoLOG SUPPLEMENTAL SCALE) 1 ACHS SQ 07/21/17 08:00 (D50w (Vial) Inj) 50 ml UNSCH PRN IV PUSH 07/20/17 21:15 (Glucagon Inj) 1 mg UNSCH PRN OTHER 07/20/17 21:15 (Zofran Inj) 4 mg Q6H PRN IVP 07/20/17 21:15 07/21/17 04:26 (Tylenol) 650 mg Q6H PRN PO 07/20/17 21:15 (Tova-Colace) 1 tab BID PO 07/21/17 09:00 (Milk Of Magnesia Liq) 30 ml Q12H PRN PO 07/20/17 21:15 (Senokot) 17.2 mg Q12H PRN PO 07/20/17 21:15 (Dulcolax Supp) 10 mg DAILY PRN RECTAL 07/20/17 21:15 (Lactulose Liq) 30 ml DAILY PRN PO 07/20/17 21:15 (NS Flush) 2 ml BID IV FLUSH 07/21/17 21:00 (NS Flush) 2 ml UNSCH PRN IV FLUSH 07/21/17 19:00 Sodium Chloride 1,000 ml @ 70 mls/hr [id number] IV 07/21/17 19:00 (Lipitor) 10 mg HS PO 07/21/17 21:00 (NovoLOG SUPPLEMENTAL SCALE) 1 ACHS SQ 07/21/17 21:00 (D50w (Vial) Inj) 50 ml UNSCH PRN IV PUSH 07/21/17 19:00 (Glucagon Inj) 1 mg UNSCH PRN OTHER 07/21/17 19:00 Allergies Allergies Coded Allergies No Known Allergies (Unverified07/20/17) Exam I&O / VS 07/21/17 07/21/17 07/22/17 15:00 23:00 07:00 Intake Total 720 ml Balance 720 ml Intake Oral 720 ml # Voids 5 # Bowel Movements 0 Vital Signs Date Time Temp Pulse Resp B/P (MAP) Pulse Ox O2 Delivery O2 Flow Rate FiO2 07/21/17 16:00 98.3 82 19 146/84 (104) 96 07/21/17 08:04 96 21 07/21/17 08:00 98.3 75 20 169/80 (109) 92 07/21/17 04:37 97.9 77 18 144/78 (100) 96 07/21/17 01:44 97.6 68 17 164/79 (107) 97 07/20/17 22:12 07/20/17 21:55 68 24 176/90 (118) Room Air 96 07/20/17 21:29 98 07/20/17 20:58 70 18 184/91 (122) Room Air 98 07/20/17 20:35 77 16 97 Room Air 07/20/17 20:34 16 97 Room Air Exam Comments alert, speech dysarthric CN---right facial droop, EOM intact PERRL MOTOR 1-2/5 RUE, 3/5 RLE. 5/5/ LUE and LLE Objective Radiology Results CT brain --stable left centrum semiovale hypodensity with no hemorrhage Micro and Labs Laboratory Tests Test 07/20/17 21:07 07/21/17 06:52 Urine Color YELLOW Urine Turbidity CLEAR Urine pH 5.0 Urine Specific [place] 1.012 Urine Protein NEG Urine Glucose (UA) NEG Urine Ketones NEG Urine Occult Blood NEG Urine Nitrite NEG Urine Bilirubin NEG Urine Urobilinogen LESS THAN 2.0 Urine Leukocyte Esterase TRACE Urine RBC 1 Urine WBC 2 Urine Squamous Epithelial Cells 2 Urine Bacteria RARE Microscopic Urinalysis Comment CATH-CULTURE IND Urine Opiates Screen NEG Urine Barbiturates Screen NEG Urine Amphetamines Screen NEG Urine Benzodiazepines Screen NEG Urine Cocaine Screen NEG Urine Cannabinoids Screen NEG White Blood Count 9.9 Red Blood Count 4.56 Hemoglobin 14.0 Hematocrit 41.3 Mean Corpuscular Volume 90.5 Mean Corpuscular Hemoglobin 30.6 Mean Corpuscular Hemoglobin Concent 33.8 Red Cell Distribution Width 13.0 Platelet Count 290 Mean Platelet Volume 7.1 Neutrophils (%) (Auto) 80.7 Lymphocytes (%) (Auto) 14.0 Monocytes (%) (Auto) 4.8 Eosinophils (%) (Auto) 0.2 Basophils (%) (Auto) 0.3 Neutrophils # (Auto) 8.0 Lymphocytes # (Auto) 1.4 Monocytes # (Auto) 0.5 Eosinophils # (Auto) 0.0 Basophils # (Auto) 0.0 CBC Comment DIFF FINAL Differential Comment Blood Urea Nitrogen 14 Creatinine 0.74 Random Glucose 102 Total Protein 7.2 Albumin 3.7 Calcium Level 8.8 Alkaline Phosphatase 73 Aspartate Amino Transf (AST/SGOT) 7 Alanine Aminotransferase (ALT/SGPT) 15 Total Bilirubin 0.7 Sodium Level 140 Potassium Level 4.0 Chloride Level 105 Carbon Dioxide Level 27.6 Anion Gap 7 Estimat Glomerular Filtration Rate 81 Hemoglobin A1c 5.0 Triglycerides Level 60 Cholesterol Level 196 LDL Cholesterol 127 HDL Cholesterol 56.6 Cholesterol/HDL Ratio 3.46 Date/Time Source Procedure Growth Status 07/20/17 21:07 Urine Catheterized Urine Urine Culture - Preliminary IMMATURE GROWTH - REINCUBATE Resulted Robbie Vallejo MD PhD Jul 21, 2017 20:27
[2017-07-21] MEDS: PRAVASTATIN SOD 40 MG TAB PO SCH (21:00)
[2017-07-21] MEDS: ATORVASTATIN 10 MG TAB PO SCH (21:00)
[2017-07-22] VITALS (8 sets, daily range): BP systolic 130–181; BP diastolic 81–88; PULSE 63–80; RESP 18; TEMP 97.6–98.7; O2SAT 94–97
[2017-07-22] MEDS: SODIUM CHLOR 0.9% 1000 ML INJ 1,000 ML IV SCH ×6 (01:48→23:35)
[2017-07-22] MEDS: DOCUSATE SODIUM 50 MG/SENNA 8.6 MG TAB PO SCH ×2 (07:58→21:00)
[2017-07-22] MEDS: INSULIN ASPART SUPPLEMENTAL SCALE SQ SCH ×8 (07:58→21:00)
[2017-07-22] MEDS: ASPIRIN 325 MG TAB PO SCH (07:58)
[2017-07-22] MEDS: SODIUM CHLORIDE 0.9% FLUSH 10 ML FLUSH IV FLUSH SCH ×4 (07:58→21:00)
--- NOTE | 2017-07-22 11:43 | HHI.PR ---
Subjective Remarks Follow-up CVA. Complains of mild headache related to being nothing by mouth. Denies visual change or dizziness. Discussed with RN Objective Vitals Vital Signs Date Time Temp Pulse Resp B/P (MAP) Pulse Ox O2 Delivery O2 Flow Rate FiO2 07/22/17 09:26 63 07/22/17 09:23 96 07/22/17 08:00 97.6 72 18 163/88 (113) 96 07/22/17 05:00 98.4 80 18 130/81 (97) 96 07/22/17 04:10 21 07/22/17 00:28 98.7 70 18 138/84 (102) 95 07/21/17 20:40 98.5 73 18 170/83 (112) 95 07/21/17 20:35 69 07/21/17 16:00 98.3 82 19 146/84 (104) 96 I/O 07/21/17 07/21/17 07/21/17 07/22/17 07/22/17 07/22/17 07:00 15:00 23:00 07:00 15:00 23:00 Intake Total 720 ml 720 ml 1000 ml Balance 720 ml 720 ml 1000 ml Intake Oral 720 ml IV Total 720 ml 1000 ml # Voids 5 9 # Bowel Movements 0 Result Diagram: 07/21/17 0652 07/21/17 0652 Objective Remarks GENERAL: Middle-aged female in no acute distress. HEENT: PERRLA, EOMI. No scleral icterus or conjunctival pallor. No lid lag. + right-sided facial droop. CARDIOVASCULAR: Regular rate and rhythm. No obvious murmurs to auscultation. No chest tenderness to palpation. RESPIRATORY: No obvious rhonchi or wheezing. Clear to auscultation. Breath sounds equal bilaterally. GASTROINTESTINAL: Abdomen soft, non-tender, nondistended. BS normal. MUSCULOSKELETAL: Extremities without clubbing, cyanosis, or edema. No obvious deformities. NEUROLOGICAL: Awake and oriented with improving right facial droop and right upper and right lower extremity weakness Procedures none A/P Problem List: (1) CVA (cerebral vascular accident) ICD Code: I63.9 - Cerebral infarction, unspecified Status: Acute (2) HTN (hypertension) ICD Code: I10 - Essential (primary) hypertension (3) Dehydration ICD Code: E86.0 - Dehydration (4) Tobacco abuse ICD Code: Z72.0 - Tobacco use Assessment and Plan 1. CVA: right-sided weakness, right facial droop starting 07/19/17, +ongoing symptoms. CT Head w/ no acute findings, images reviewed by me. Dr. Vallejo consulted, outside TPA window. MRI with left thalamic ischemia. LDL 127. A1c 5. Echocardiogram with EF of 60%. Continue aspirin and statin. Permissive hypertension . Start diet and consider head elevation if okay with neurology 2. HTN: BP 180's on arrival, allow for permissive HTN in light of acute CVA. Antihypertensives prn for BP >220 systolic. Monitor closely. 3. Toxic encephalopathy after receiving Ativan prior to MRI. Neurochecks . Resolved 4. Tobacco Abuse: Pt counselled. Ativan prn. No NicoDerm to avoid vasoconstriction. 5. DVT Prophylaxis: SCD/Teds. Pharmacological prophylaxis if okay with neurology Discharge Planning Not ready for discharge secondary to acute stroke. Will need rehabilitation anticipated difficult placement secondary to no payor source Dale Taveras MD Jul 22, 2017 11:43
--- NOTE | 2017-07-22 21:39 | HHI.PR ---
Review/Management Diagnosis Left CVA Plan ok to elevate hob continue asa and statin Diagnosis/Plan: Subjective Subjective Comments No acute events reported No change in right sided weakness Active Medications Current Medications Medications (Trade) Dose Ordered Sig/Shamika Route Start Time Stop Time Status Last Admin (NS Flush) 2 ml BID IV FLUSH 07/21/17 09:00 (NS Flush) 2 ml UNSCH PRN IV FLUSH 07/20/17 21:15 Sodium Chloride 1,000 ml @ 70 mls/hr [id number] IV 07/20/17 21:12 07/22/17 03:26 (Vasotec Inj) 1.25 mg Q4H PRN IV PUSH 07/20/17 21:15 (Aspirin) 325 mg DAILY PO 07/21/17 09:00 07/21/17 14:34 (Pravachol) 40 mg HS PO 07/21/17 21:00 (NovoLOG SUPPLEMENTAL SCALE) 1 ACHS SQ 07/21/17 08:00 (D50w (Vial) Inj) 50 ml UNSCH PRN IV PUSH 07/20/17 21:15 (Glucagon Inj) 1 mg UNSCH PRN OTHER 07/20/17 21:15 (Zofran Inj) 4 mg Q6H PRN IVP 07/20/17 21:15 07/21/17 04:26 (Tylenol) 650 mg Q6H PRN PO 07/20/17 21:15 (Tova-Colace) 1 tab BID PO 07/21/17 09:00 (Milk Of Magnesia Liq) 30 ml Q12H PRN PO 07/20/17 21:15 (Senokot) 17.2 mg Q12H PRN PO 07/20/17 21:15 (Dulcolax Supp) 10 mg DAILY PRN RECTAL 07/20/17 21:15 (Lactulose Liq) 30 ml DAILY PRN PO 07/20/17 21:15 (NS Flush) 2 ml BID IV FLUSH 07/21/17 21:00 (NS Flush) 2 ml UNSCH PRN IV FLUSH 07/21/17 19:00 Sodium Chloride 1,000 ml @ 70 mls/hr [id number] IV 07/21/17 19:00 07/22/17 17:50 (Lipitor) 10 mg HS PO 07/21/17 21:00 (NovoLOG SUPPLEMENTAL SCALE) 1 ACHS SQ 07/21/17 21:00 (D50w (Vial) Inj) 50 ml UNSCH PRN IV PUSH 07/21/17 19:00 (Glucagon Inj) 1 mg UNSCH PRN OTHER 07/21/17 19:00 (Heparin Inj) 5,000 units Q12HR SQ 07/22/17 21:00 Allergies Allergies Coded Allergies No Known Allergies (Unverified07/20/17) Exam I&O / VS Vital Signs Date Time Temp Pulse Resp B/P (MAP) Pulse Ox O2 Delivery O2 Flow Rate FiO2 07/22/17 16:00 98.0 74 18 165/86 (112) 94 07/22/17 12:00 98.1 75 18 175/86 (115) 97 07/22/17 09:26 63 07/22/17 09:23 96 07/22/17 08:00 97.6 72 18 163/88 (113) 96 07/22/17 05:00 98.4 80 18 130/81 (97) 96 07/22/17 04:10 21 07/22/17 00:28 98.7 70 18 138/84 (102) 95 Exam Comments alert, speech dysarthric CN---right facial droop, EOM intact PERRL MOTOR 1-2/5 RUE, 3/5 RLE. 5/5/ LUE and LLE Objective Micro and Labs Date/Time Source Procedure Growth Status 07/20/17 21:07 Urine Catheterized Urine Urine Culture - Final 10-50,000 CFU/ML MIXED GRAM POSITIVE ... Complete Robbie Vallejo MD PhD Jul 22, 2017 21:39
[2017-07-22] MEDS: ACETAMINOPHEN 325 MG TAB PO PRN (21:40)
[2017-07-22] MEDS: PRAVASTATIN SOD 40 MG TAB PO SCH (23:30)
[2017-07-22] MEDS: HEPARIN SODIUM - SQ 10,000 UNITS/ML VIAL SQ SCH (23:30)
[2017-07-22] MEDS: ATORVASTATIN 10 MG TAB PO SCH (23:30)
[2017-07-23] VITALS (9 sets, daily range): BP systolic 141–183; BP diastolic 78–94; PULSE 61–72; RESP 18; TEMP 97.8–98.9; O2SAT 95–97
[2017-07-23] MEDS: DOCUSATE SODIUM 50 MG/SENNA 8.6 MG TAB PO SCH ×2 (08:40→22:48)
[2017-07-23] MEDS: ASPIRIN 325 MG TAB PO SCH (08:40)
[2017-07-23] MEDS: HEPARIN SODIUM - SQ 10,000 UNITS/ML VIAL SQ SCH ×2 (08:40→22:51)
[2017-07-23] MEDS: SODIUM CHLORIDE 0.9% FLUSH 10 ML FLUSH IV FLUSH SCH ×2 (09:00→22:48)
--- NOTE | 2017-07-23 12:52 | HHI.PR ---
Subjective Remarks Follow-up CVA. States she is getting better denies headache, dizziness and visual change. Tolerating diet. Discussed with RN Objective Vitals Vital Signs Date Time Temp Pulse Resp B/P (MAP) Pulse Ox O2 Delivery O2 Flow Rate FiO2 07/23/17 08:00 98.1 67 18 176/89 (118) 96 07/23/17 05:01 65 07/23/17 04:00 97.8 72 18 169/84 (112) 97 07/23/17 00:00 98.0 62 18 163/84 (110) 97 07/22/17 20:00 98.3 68 18 181/83 (115) 97 07/22/17 16:00 98.0 74 18 165/86 (112) 94 I/O 07/22/17 07/22/17 07/22/17 07/23/17 07/23/17 07/23/17 07:00 15:00 23:00 07:00 15:00 23:00 Intake Total 1000 ml Balance 1000 ml IV Total 1000 ml # Voids 9 7 3 Result Diagram: 07/21/17 0652 07/21/17 0652 Imaging Last Impressions Head Magnetic Resonance Angiography 07/21/17 0000 Signed Impressions: Service Date/Time: Friday, July 21, 2017 11:13 - CONCLUSION: Negative MRA of the brain. Nikhil García MD FACR Head CT 07/21/17 0000 Signed Impressions: Service Date/Time: Friday, July 21, 2017 19:55 - CONCLUSION: Stable hypodensity in the left centrum semiovale region. No evidence of acute hemorrhage or significant edema. Mild prominence of the basilar tip is stable from the previous study and normal on the MRA. Bashir Sky MD Carotid Artery Ultrasound 07/21/17 0000 Signed Impressions: Service Date/Time: Friday, July 21, 2017 12:39 - CONCLUSION: 1. Mild calcified plaque right carotid bifurcation. 2. No evidence of hemodynamically significant stenosis. 3. Antegrade flow both vertebral arteries. Jack Mae MD Brain MRI 07/21/17 0000 Signed Impressions: Service Date/Time: Friday, July 21, 2017 11:13 - CONCLUSION: Restricted diffusion thalamus left side consistent with acute ischemic event These are 2 separate areas. Nikhil García MD FACR Chest X-Ray 07/20/171958 Signed Impressions: Service Date/Time: Thursday, July 20, 2017 20:05 - CONCLUSION: No acute disease. Jack Mae MD Objective Remarks GENERAL: Middle-aged female in no acute distress. HEENT: PERRLA, EOMI. No scleral icterus or conjunctival pallor. No lid lag. + right-sided facial droop. CARDIOVASCULAR: Regular rate and rhythm. No obvious murmurs to auscultation. No chest tenderness to palpation. RESPIRATORY: No obvious rhonchi or wheezing. Clear to auscultation. Breath sounds equal bilaterally. GASTROINTESTINAL: Abdomen soft, non-tender, nondistended. BS normal. MUSCULOSKELETAL: Extremities without clubbing, cyanosis, or edema. No obvious deformities. NEUROLOGICAL: Awake and oriented with improving right facial droop and right lower extremity weakness able to slightly raise against gravity. Right upper extremity unable to elevate (gravity Procedures none A/P Problem List: (1) CVA (cerebral vascular accident) ICD Code: I63.9 - Cerebral infarction, unspecified Status: Acute (2) HTN (hypertension) ICD Code: I10 - Essential (primary) hypertension (3) Dehydration ICD Code: E86.0 - Dehydration (4) Tobacco abuse ICD Code: Z72.0 - Tobacco use Assessment and Plan 1. CVA: right-sided weakness, right facial droop starting 07/19/17, +ongoing symptoms. CT Head w/ no acute findings, images reviewed by me. Dr. Vallejo consulted, outside TPA window. MRI with left thalamic ischemia. LDL 127. A1c 5. Echocardiogram with EF of 60%. Continue aspirin and statin. Risk factor modifications. Stable 2. HTN: BP 180's on arrival, allow for permissive HTN in light of acute CVA. Antihypertensives prn for BP >220 systolic. Monitor closely. 3. Toxic encephalopathy after receiving Ativan prior to MRI. Neurochecks . Resolved 4. Tobacco Abuse: Pt counselled. Ativan prn. No NicoDerm to avoid vasoconstriction. 5. DVT Prophylaxis: SCD/Teds. Subcutaneous heparin Discharge Planning Will need rehabilitation anticipated difficult placement secondary to no payor source Dale Taveras MD Jul 23, 2017 12:52
[2017-07-23] MEDS ORDERED: LIPI10TA PO (15:31)
[2017-07-23] MEDS ORDERED: ASA325 PO (15:32)
--- NOTE | 2017-07-23 15:33 | HHI.DCPOC ---
Discharge Care Plan Diagnosis: (1) CVA (cerebral vascular accident) Your Health Problems Are: Difficulty with ADL Exercise Tolerance Goals to Promote Your Health * To prevent worsening of your condition and complications * To maintain your health at the optimal level Directions to Meet Your Goals Take your medications as prescribed Follow your dietary instruction Follow activity as directed Keep your appointments as scheduled Take your immunizations and boosters as scheduled If your symptoms worsen call your PCP, if no PCP go to Urgent Care Center or Emergency Room Smoking is Dangerous to Your Health. Avoid second hand smoke Call the 24-hour hour crisis hotline for domestic abuse at Dale Taveras MD Jul 23, 2017 15:33
[2017-07-23] MEDS: ATORVASTATIN 10 MG TAB PO SCH (22:48)
[2017-07-24] VITALS (7 sets, daily range): BP systolic 134–177; BP diastolic 71–87; PULSE 58–80; RESP 18–20; TEMP 97.8–98.6; O2SAT 94–95
[2017-07-24] MEDS: DOCUSATE SODIUM 50 MG/SENNA 8.6 MG TAB PO SCH (08:05)
[2017-07-24] MEDS: SODIUM CHLORIDE 0.9% FLUSH 10 ML FLUSH IV FLUSH SCH (08:06)
[2017-07-24] MEDS: ASPIRIN 325 MG TAB PO SCH (08:06)
[2017-07-24] MEDS: HEPARIN SODIUM - SQ 10,000 UNITS/ML VIAL SQ SCH (08:06)
--- NOTE | 2017-07-24 11:38 | HHI.PR ---
Subjective Remarks Follow-up CVA. She is out of bed to chair denies headache or dizziness. Seen with family discussed with RN Objective Vitals Vital Signs Date Time Temp Pulse Resp B/P (MAP) Pulse Ox O2 Delivery O2 Flow Rate FiO2 07/24/17 10:24 95 07/24/17 07:46 97.8 67 20 177/87 (117) 95 07/24/17 04:00 97.8 63 18 134/71 (92) 95 07/24/17 00:00 98.3 72 18 159/87 (111) 95 07/24/17 00:00 68 07/23/17 20:00 98.9 65 18 153/94 (113) 97 07/23/17 19:57 61 07/23/17 17:15 96 21 07/23/17 16:00 98.0 69 18 183/88 (119) 95 07/23/17 12:00 98.7 68 18 141/78 (99) 96 I/O 07/23/17 07/23/17 07/23/17 07/24/17 07/24/17 07/24/17 07:00 15:00 23:00 07:00 15:00 23:00 # Voids 3 6 Result Diagram: 07/21/17 0652 07/21/17 0652 Objective Remarks GENERAL: Middle-aged female in no acute distress. HEENT: PERRLA, EOMI. No scleral icterus or conjunctival pallor. No lid lag. + right-sided facial droop. CARDIOVASCULAR: Regular rate and rhythm. No obvious murmurs to auscultation. No chest tenderness to palpation. RESPIRATORY: No obvious rhonchi or wheezing. Clear to auscultation. Breath sounds equal bilaterally. GASTROINTESTINAL: Abdomen soft, non-tender, nondistended. BS normal. MUSCULOSKELETAL: Extremities without clubbing, cyanosis, or edema. No obvious deformities. NEUROLOGICAL: Awake and oriented with improving right facial droop and right lower extremity weakness able to slightly raise against gravity which is improving. Right upper extremity unable to elevate (gravity) Procedures none A/P Problem List: (1) CVA (cerebral vascular accident) ICD Code: I63.9 - Cerebral infarction, unspecified Status: Acute (2) HTN (hypertension) ICD Code: I10 - Essential (primary) hypertension (3) Dehydration ICD Code: E86.0 - Dehydration (4) Tobacco abuse ICD Code: Z72.0 - Tobacco use Assessment and Plan 1. CVA: right-sided weakness, right facial droop starting 07/19/17, +ongoing symptoms. CT Head w/ no acute findings, images reviewed by me. Dr. Vallejo consulted, outside TPA window. MRI with left thalamic ischemia. LDL 127. A1c 5. Echocardiogram with EF of 60%. Continue aspirin and statin. Risk factor modifications. Stable 2. HTN: BP 180's on arrival, allow for permissive HTN in light of acute CVA. Antihypertensives prn for BP >220 systolic. Monitor closely. 3. Toxic encephalopathy after receiving Ativan prior to MRI. Neurochecks . Resolved 4. Tobacco Abuse: Pt counselled. Ativan prn. No NicoDerm to avoid vasoconstriction. 5. DVT Prophylaxis: SCD/Teds. Subcutaneous heparin Discharge Planning Will need rehabilitation anticipated difficult placement secondary to no payor source. Aditya following to consider for [facility] hospital bed Dale Taveras MD Jul 24, 2017 11:38
[2017-07-24] MEDS: ACETAMINOPHEN 325 MG TAB PO PRN (14:21)
--- NOTE | 2017-07-24 15:02 | HHI.DS ---
Discharge Summary Admission Date Jul 20, 2017 at 21:13 Discharge Date: Jul 24, 2017 Admitting Diagnosis CVA (1) CVA (cerebral vascular accident) ICD Code: I63.9 - Cerebral infarction, unspecified Diagnosis: Principal Status: Acute (2) HTN (hypertension) ICD Code: I10 - Essential (primary) hypertension Diagnosis: Principal (3) Dehydration ICD Code: E86.0 - Dehydration Diagnosis: Principal (4) Tobacco abuse ICD Code: Z72.0 - Tobacco use Diagnosis: Principal Procedures none Brief History - From Admission This is a 57-year-old left-handed female with no significant PMH who was brought to the ER by family for evaluation of right-sided weakness and facial droop. Per pt, episode of right-sided weakness and gait imbalance last night. Today, reports progression of symptoms w/ worsening right-sided weakness and subsequent fall. No head trauma or LOC. Noted by family to have right facial droop. Unclear time of symptom onset, believes last normal 07/19/17. No h/o similar symptoms in the past. +tobacco abuse. On arrival, BP 185/95, HR 87, O2 sat 97% on RA, Afebrile. CBC unremarkable except for mild hemoconcentration , hemoglobin 16. Chemistry unremarkable except for GFR 61. Troponin negative. INR 1.0. UA negative. CXR with no acute findings. CT Head negative. Dr. Vallejo consulted by ER physician, patient is not a TPA candidate as she is outside the window. CBC/BMP: 07/21/17 0652 07/21/17 0652 Imaging Last Impressions Head Magnetic Resonance Angiography 07/21/17 0000 Signed Impressions: Service Date/Time: Friday, July 21, 2017 11:13 - CONCLUSION: Negative MRA of the brain. Nikhil García MD FACR Head CT 07/21/17 0000 Signed Impressions: Service Date/Time: Friday, July 21, 2017 19:55 - CONCLUSION: Stable hypodensity in the left centrum semiovale region. No evidence of acute hemorrhage or significant edema. Mild prominence of the basilar tip is stable from the previous study and normal on the MRA. Bashir A. Sevigny, MD Carotid Artery Ultrasound 07/21/17 0000 Signed Impressions: Service Date/Time: Friday, July 21, 2017 12:39 - CONCLUSION: 1. Mild calcified plaque right carotid bifurcation. 2. No evidence of hemodynamically significant stenosis. 3. Antegrade flow both vertebral arteries. Jack Mae MD Brain MRI 07/21/17 0000 Signed Impressions: Service Date/Time: Friday, July 21, 2017 11:13 - CONCLUSION: Restricted diffusion thalamus left side consistent with acute ischemic event These are 2 separate areas. Nikhil García MD FACR Chest X-Ray 07/20/171958 Signed Impressions: Service Date/Time: Thursday, July 20, 2017 20:05 - CONCLUSION: No acute disease. Jack Mae MD PE at Discharge GENERAL: Middle-aged female in no acute distress. HEENT: PERRLA, EOMI. No scleral icterus or conjunctival pallor. No lid lag. + right-sided facial droop. CARDIOVASCULAR: Regular rate and rhythm. No obvious murmurs to auscultation. No chest tenderness to palpation. RESPIRATORY: No obvious rhonchi or wheezing. Clear to auscultation. Breath sounds equal bilaterally. GASTROINTESTINAL: Abdomen soft, non-tender, nondistended. BS normal. MUSCULOSKELETAL: Extremities without clubbing, cyanosis, or edema. No obvious deformities. NEUROLOGICAL: Awake and oriented with improving right facial droop and right lower extremity weakness able to slightly raise against gravity which is improving. Right upper extremity unable to elevate (gravity) Hospital Course 1. CVA: right-sided weakness, right facial droop starting 07/19/17, +ongoing symptoms. CT Head w/ no acute findings, images reviewed by me. Dr. Vallejo consulted, outside TPA window. MRI with left thalamic ischemia. LDL 127. A1c 5. Echocardiogram with EF of 60%. Continue aspirin and statin. Risk factor modifications. Stable 2. HTN: BP 180's on arrival, allow for permissive HTN in light of acute CVA. Antihypertensives prn for BP >220 systolic. Monitor closely. 3. Toxic encephalopathy after receiving Ativan prior to MRI. Neurochecks . Resolved 4. Tobacco Abuse: Pt counselled. Ativan prn. No NicoDerm to avoid vasoconstriction. 5. DVT Prophylaxis: SCD/Teds. Subcutaneous heparin Pt Condition on Discharge: Stable Discharge Disposition: Rehab Inpatient Discharge Time: > 30 minutes Discharge Instructions DIET: Follow Instructions for: Heart Healthy Diet Speech Therapy-Diet Recommends: Regular Activities you can perform: Regular-No Restrictions Activities to Avoid: Driving Follow up Referrals: Neurology - 1 Week PCP Follow-up - 1 Week New Medications: Aspirin (Px Aspirin) 325 Mg Tab 325 MG PO DAILY for Prevent Blood Clot, #30 TAB Atorvastatin (Lipitor) 10 Mg Tab 10 MG PO HS for Cholesterol Management, #30 TAB Dale Taveras MD Jul 24, 2017 15:02
== END 2017-07-24 16:45 | DRG 64 ==
LOC: NEPC 19:51 → NEDA 21:13 → N05A 22:05
PROVIDERS: ADMIT Internal Medicine; ATTEND Internal Medicine
DX: I63.9 Cerebral infarction, unspecified (principal); G92 Toxic encephalopathy; G81.91 Hemiplegia, unspecified affecting right dominant side; E86.0 Dehydration; R29.705 NIHSS score 5; R29.810 Facial weakness; F17.210 Nicotine dependence, cigarettes, uncomplicated; R27.0 Ataxia, unspecified; I10 Essential (primary) hypertension; T42.4X5A Adverse effect of benzodiazepines, initial encounter
CPT/HCPCS: 70450; 70544; 70551; 71045; 80048; 80053; 80061; 80307; 81001; 82550; 82948; 83036; 84484; 85025; 85610; 85730; 87086; 93005; 93306; 93880; J0131; J1644; J2060; J2405; J7030

== ENCOUNTER 2018-04-09 12:04 | Inpatient (IN) ==
[2018-04-09] MEDS ORDERED: ALTEPLASE DRIP IV.SIG ONE (12:54)
[2018-04-09] MEDS ORDERED: Alteplase Bolus 9 MG/9 ML Syringe IV.PUSH ONE (12:54)
--- NOTE | 2018-04-09 12:56 | ED ---
HPI General Chief Complaint: Neuro Symptoms/Deficit Stated Complaint: Medical Time Seen by Provider: 04/09/18 12:31 Source: patient and family Mode of arrival: wheelchair Limitations: other History of Present Illness HPI Narrative: Patient is a 57-year-old female presenting to the emergency department with acute onset of aphasia. Patient was in the [facility] building at a doctor's appointment when she became diaphoretic, nauseated and her speech became impaired. Patient has a history of CVA as well as TIAs in the past. She has residual right-sided upper extremity weakness. Symptom onset was approximately 20 minutes prior to arrival in the emergency department. Friend reports that she had been feeling fine all morning. Past medical history is significant for hypertension, CVA, TIA, hyperlipidemia. Patient is currently on Plavix. Onset (ago): minute(s) Last Observed Normal: 12:20 Timing confirmed by: family member Location: speech History of same: Yes Severity: similar to previous episodes Context: sudden onset Associated symptoms: diaphoresis and nausea/vomiting Treatments Prior to Arrival: none Related Data Home Medications Medication Instructions Recorded Confirmed aspirin 325 mg PO DAILY 01/24/18 01/24/18 gabapentin 300 mg PO TID 01/24/18 01/24/18 losartan 100 mg PO DAILY 01/24/18 01/24/18 trazodone 50 mg PO DAILY 01/24/18 01/24/18 Allergies Allergy/AdvReac Type Severity Reaction Status Date / Time No Known Allergies Allergy Verified 01/24/18 09:32 Review of Systems ROS: all other systems reviewed are negative FOR[facility]LY [facility], [facility] Medical History Medical History HBP (high blood pressure) (Acute) HBP (high blood pressure) (Acute) High cholesterol (Acute) Stroke (Acute) Surgical History Surgical History Hx of tonsillectomy (Acute) Social History Social History Substance History: No History of Abuse Second Hand Smoke Exposure: No Smoking Status: Former smoker Tobacco Type: Cigarettes How Often Do You Have a Drink Containing Alcohol: Never Recent Travel in [facility] within the Last 8 Weeks: No Recent Out of Country Travel within the Last 8 Weeks: No Immunization History Tetanus Immunization: Unsure Exam Narrative Exam Narrative: GENERAL: Overweight, well-developed, alert female, appears distressed. SKIN: Clammy, diaphoretic HEAD: Atraumatic. Normocephalic. EYES: Pupils equal and round. No scleral icterus. No injection or drainage. ENT: No nasal bleeding or discharge. Mucous membranes pink and moist. NECK: Trachea midline. No JVD. CARDIOVASCULAR: Regular rate and rhythm. No murmur appreciated. RESPIRATORY: No accessory muscle use. Clear to auscultation. Breath sounds equal bilaterally. GASTROINTESTINAL: Abdomen soft, non-tender, nondistended. Hepatic and splenic margins not palpable. MUSCULOSKELETAL: No obvious deformities. No clubbing. No cyanosis. No edema. NEUROLOGICAL: Awake and alert. 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 PSYCHIATRIC: Appropriate mood and anxious affect; insight and judgment normal. Course Initial Documented Vital Signs Temperature 97.6 F 04/09/18 12:16 Pulse Rate 63 04/09/18 12:16 Respiratory Rate 18 04/09/18 12:16 Blood Pressure 157/118 H 04/09/18 12:16 Pulse Oximetry 97 04/09/18 12:16 Last Documented Vital Signs Temperature 97.6 F 04/09/18 12:16 Pulse Rate 74 04/09/18 13:01 Respiratory Rate 17 04/09/18 13:01 Blood Pressure 163/76 H 04/09/18 13:01 Pulse Oximetry 100 04/09/18 13:17 Critical Care Time Critical Care Time: Yes Total Critical Care Time: 35 Attestation: Aggregate critical care time was 35 minutes. Time to perform other separately billable procedures was not included in the critical care time. My time did not include minutes spent treating any other patients simultaneously or on activities that did not directly contribute to the patient's treatment. The services I provided to this patient were to treat and/or prevent clinically significant deterioration that could result in: , disability, organ failure I provided critical care services requiring my management, as noted below: Chart data review, documentation time, medication orders and management, vital sign assessments/reviewing monitor data, ordering and reviewing lab tests, ordering and interpreting/reviewing x-rays and diagnostic studies, care of the patient and discussion of the patient with the admitting physicians. NIH Stroke Scale NIH Stroke Scale Level of Consciousness: 0-Alert Orientation Questions: 0-Answers both correct Responds to Commands: 0-Both tasks correct Gaze Eye Movement: 0-Horizontal movement WNL Visual Live: 0-No visual field defect Facial Movement: 1-Minor facial palsy Motor Functions Arm LEFT: 0-No drift Motor Functions Arm RIGHT: 0-No drift Motor Functions Leg LEFT: 0-No drift Motor Functions Leg RIGHT: 1-Drift before 5 seconds Limb Ataxia: 0-No ataxia Sensory Loss: 0-No sensory loss Best Language: 2-Severe aphasia Articulation: 0-Normal Extinction or Inattention Sensory: 0-Absent Total: 3 Medical Decision Making GO Attestation GO supervised visit: Yes Attestation: I, Dr. Umanzor, have reviewed the advance practice practitioner's documentation and am in agreement, met with the patient face to face, made the diagnosis, and the medical decision making was done by me. *My assessment and Findings: Patient seen and examined by me in addition to Chayo AHMADI, this is a patient reported to me about 30-minute history of a aphasia. She has a history of right-sided stroke in the past. She is accompanied by a friend who states that the aphasia is new for her. She has chronic difficulty with right upper and right lower extremity weakness however. On my examination the patient is having a very dense a aphasia. She is able to speak in only 1 or 2 syllable words and cannot carry on a conversation with me. She does not appear to have a receptive component. She was stroke alerted on my examination, I accompanied her to CT with a CT head showed an old left basal ganglier stroke but no acute bleeding or tumors. This was confirmed with Dr. Bashir García. After discussion with Dr. Vallejo who is also at the bedside examining patient we agree that the patient is a TPA candidate. The patient does not have any identifiable contraindications to TPA. Her blood pressure is in range, she had one episode of hypertension while a painful stimulus was applied to her right shoulder, when the stimulus remove her blood pressure returned to within window. She did not require any medication to control her blood pressure. She is on Plavix alone. The patient was briefly consented by me for TPA and after discussions of risks including bleeding which can be life- threatening the patient consented to have TPA for the benefits of quicker resolution and better resolution of her stroke. She was bolused TPA and started a drip. Total NIH stroke scale is 4, shortly after TPA bolus the patient has had near resolution of her aphasia, still with her chronic right upper and right lower extremity weakness. Ms. Torres will call the intensive surgical care team to resume care at this time. [facility] Narrative Medical decision making narrative: Patient is a 57-year-old female that presented to the emergency department with an acute onset of aphasia, diaphoresis and nausea. Stroke alert initiated by Dr. Umanzor. Patient was taken emergently to CT. Dr. Vallejo was at bedside as patient was being prepped for CT. TPA initiated as well as IVF. CT of the brain and CTA show no acute infarct, no occlusion. CBC with no acute findings, I-Stat chem with K+ 5.3, otherwise unremarkable. Zofran given for nausea. 1355 patient was reassessed, she was speaking clearly. Patient appears well at this time. Dr. Gonzales accepted admit, orders placed. Patient's vital signs remained stable. Dr. Gonzales paged for admission. Please see my attending physicians note. Medical Screen Exam Complete: Yes Emergency Medical Condition: Yes Differential Diagnosis Differential Diagnosis: CVA versus TIA versus metabolic abnormality versus arrhythmia versus other Medical Records Medical records reviewed: Yes I reviewed the patient's medical records. Lab Data Result diagrams: 04/09/18 12:48 Lab Results 04/09/18 04/09/18 04/09/18 Range/Units 12:41 12:48 12:48 WBC 6.4 (4.0-11.0) th/mm3 RBC 4.62 (4.00-5.30) mil/mm3 Hgb 14.1 (11.6-15.3) gm/dL POC Hgb (Calc) (11.6-15.3) g/dL Hct 42.2 (35.0-46.0) % POC Hct (35-46.0) % MCV 91.5 (80.0-100.0) fL MCH 30.5 (27.0-34.0) pg MCHC 33.4 (32.0-36.0) % RDW 13.7 (11.6-17.2) % Plt Count 287 (150-450) th/mm3 MPV 7.1 (7.0-11.0) fL Neut % (Auto) 75.2 H (16.0-70.0) % Lymph % (Auto) 17.4 (9.0-44.0) % [place]wood % (Auto) 7.1 (0.0-8.0) % Eos % (Auto) 0.0 (0.0-4.0) % Baso % (Auto) 0.3 (0.0-2.0) % Neut # (Auto) 4.8 (1.8-7.7) th/mm3 Lymph # (Auto) 1.1 (1.0-4.8) th/mm3 [place]wood # (Auto) 0.5 (0.0-0.9) th/mm3 Eos # (Auto) 0.0 (0.0-0.4) th/mm3 Baso # (Auto) 0.0 (0.0-0.2) th/mm3 WBC Differential . Differential Comment Auto diff final PT 10.0 (9.8-11.6) sec INR 1.0 Ratio APTT 25.8 (24.3-30.1) sec Fibrinogen 354 (227-377) mg/dL POC Sodium (137-144) mmol/L POC Potassium (3.6-5.0) mmol/L POC Chloride (102-111) mmol/L POC BUN (5-21) mg/dL POC Creatinine (0.6-1.3) mg/dL POC Glucose 93 (68-110) mg/dl Total Creatine Kinase (26-192) U/L Troponin I (0.02-0.05) ng/mL Beta HCG, Quant (0-5) mIU/mL Blood Type Blood Type Recheck Antibody Screen 04/09/18 04/09/18 04/09/18 Range/Units 12:48 12:48 12:48 WBC (4.0-11.0) th/mm3 RBC (4.00-5.30) mil/mm3 Hgb (11.6-15.3) gm/dL POC Hgb (Calc) 13.9 (11.6-15.3) g/dL Hct (35.0-46.0) % POC Hct 41.0 (35-46.0) % MCV (80.0-100.0) fL MCH (27.0-34.0) pg MCHC (32.0-36.0) % RDW (11.6-17.2) % Plt Count (150-450) th/mm3 MPV (7.0-11.0) fL Neut % (Auto) (16.0-70.0) % Lymph % (Auto) (9.0-44.0) % [place] % (Auto) (0.0-8.0) % Eos % (Auto) (0.0-4.0) % Baso % (Auto) (0.0-2.0) % Neut # (Auto) (1.8-7.7) th/mm3 Lymph # (Auto) (1.0-4.8) th/mm3 [place]wood # (Auto) (0.0-0.9) th/mm3 Eos # (Auto) (0.0-0.4) th/mm3 Baso # (Auto) (0.0-0.2) th/mm3 WBC Differential Differential Comment PT (9.8-11.6) sec INR Ratio APTT (24.3-30.1) sec Fibrinogen (227-377) mg/dL POC Sodium 140 (137-144) mmol/L POC Potassium 5.3 H (3.6-5.0) mmol/L POC Chloride 101 L (102-111) mmol/L POC BUN 23 H (5-21) mg/dL POC Creatinine 0.9 (0.6-1.3) mg/dL POC Glucose 100 (68-110) mg/dl Total Creatine Kinase 77 (26-192) U/L Troponin I Less than 0.02 L (0.02-0.05) ng/mL Beta HCG, Quant 8 H (0-5) mIU/mL Blood Type A Positive Blood Type Recheck Required Antibody Screen Negative Imaging Data Radiologist's impression: Head CTA 04/09/18 12:39 CONCLUSION: 1. No large or central vessel occlusion identified in the intracranial circulation. 2. Results were called directly to Dr. Shayne Vallejo. Neck CTA 04/09/18 12:39 CONCLUSION: 1. Negative CTA Carotid. Head CT 04/09/18 12:40 CONCLUSION: 1. Old area of infarct involving the basal ganglia on the right. 2. No acute abnormality. Report was called by [Dr. James García to Dr. Shayne Vallejo ] Discharge Plan Discharge Disposition Patient Disposition: 30 Still Patient Discharge Condition Condition: Critical Discharge Details Diagnosis: CVA (cerebral vascular accident) Physicians Team ED Provider: Ryan Umanzor ED Midlevel Provider: Chayo Torres Primary Care Provider: UNKNOWN, Other Providers: Robbie Vallejo Rxs /Orders / Referrals /Forms Prescriptions: No Action aspirin 325 mg Tablet 325 mg PO DAILY RF: 0 trazodone 50 mg Tablet 50 mg PO DAILY RF: 0 losartan 100 mg Tablet 100 mg PO DAILY RF: 0 gabapentin 300 mg Capsule 300 mg PO TID RF: 0 Discharge Interventions Interventions: Vital Signs Last Done: 04/09/18 12:42 Status ED Status: Admitted Patient
--- NOTE | 2018-04-09 12:58 | CT ---
EXAM DATE: 04/09/2018 12:47 PM EDT AGE/SEX: 57 years / Female INDICATIONS: Stroke alert, right side weakness. CLINICAL DATA: This is the patient's initial encounter. Patient reports that signs and symptoms have been present for 1 day and indicates a pain score of Nonresponsive. MEDICAL/SURGICAL HISTORY: Non-responsive. Non-responsive. RADIATION DOSE: 56.35 CTDI (mGy) COMPARISON: [facility], CTA NECK W CONTRAST W 3D, 04/09/2018. . TECHNIQUE: CT of the head without contrast. Using automated exposure control and adjustment of the mA and/or kV according to patient size, radiation dose was kept as low as reasonably achievable to ob tain optimal diagnostic quality images. DICOM format image data is available electronically for revi ew and comparison. FINDINGS: The examination demonstrates a 7 mm area of encephalomalacia infarct involving the posterior aspect o f the caudate and extending down into the basal ganglia on the left. This was visible on the previous back in July 2017. There is no acute intracranial hemorrhage. No mass lesion is identified. The sulci and gyri are other jacobs intact. The appearance of the posterior fossa is unremarkable. The osseous structures of the skull are grossly intact. The sinuses are clear. CONCLUSION: 1. Old area of infarct involving the basal ganglia on the right. 2. No acute abnormality. Report was called by [Dr. James García to Dr. Shayne Vallejo ] Electronically signed by: Carlos García MD 04/09/2018 12:56 PM EDT
[2018-04-09 13:00] LABS: Baso % (Auto) 0.3 % (0.0-2.0); Hematocrit 42.2 % (35.0-46.0); Hemoglobin 14.1 gm/dL (11.6-15.3); Lymph # (Auto) 1.1 th/mm3 (1.0-4.8); Lymph % (Auto) 17.4 % (9.0-44.0); Mean Corpuscular HGB Conc 33.4 % (32.0-36.0); Mean Corpuscular Hemoglobin 30.5 pg (27.0-34.0); Mean Corpuscular Volume 91.5 fL (80.0-100.0); Mean Platelet Volume 7.1 fL (7.0-11.0); Mono # (Auto) 0.5 th/mm3 (0.0-0.9); Mono % (Auto) 7.1 % (0.0-8.0); Neut # (Auto) 4.8 th/mm3 (1.8-7.7); Neut % (Auto) 75.2 % (16.0-70.0); Platelet Count 287 th/mm3 (150-450); Red Blood Count 4.62 mil/mm3 (4.00-5.30); Red Cell Distribution Width 13.7 % (11.6-17.2); White Blood Count 6.4 th/mm3 (4.0-11.0)
[2018-04-09] MEDS: Sod Chloride 0.9% Inj 1,000 ML IV.CONT SCH (13:03)
[2018-04-09 13:12] LABS: Activated Partial Thrombo Time 25.8 sec (24.3-30.1)
--- NOTE | 2018-04-09 13:14 | CT ---
EXAM DATE: 04/09/2018 12:41 PM EDT AGE/SEX: 57 years / Female INDICATIONS: Stroke alert, right side weakness. CLINICAL DATA: This is the patient's initial encounter. Patient reports that signs and symptoms have been present for 1 day and indicates a pain score of Nonresponsive. MEDICAL/SURGICAL HISTORY: Non-responsive. Non-responsive. RADIATION DOSE: 10.26 CTDI (mGy) COMPARISON: [facility] [place], CT HEAD W/O CONTRAST, 04/09/2018. . TECHNIQUE: Volumetric scanning was performed using a multi-row detector CT scanner during bolus infu scott of 80 ml Visipaque 320 (iodixanol) nonionic water-soluble contrast as a cumulative dose for [facility] tiple exams. The data was post processed with a variety of visualization algorithms including full volume maximum intensity projection, multi-planar sliding thin slab reformation, curved planar reform ation, and surface rendering techniques. Using automated exposure control and adjustment of the mA a nd/or kV according to patient size, radiation dose was kept as low as reasonably achievable to obtain optimal diagnostic quality images. DICOM format image data is available electronically for review a nd comparison. FINDINGS: The distal internal carotids are widely patent. The anterior and middle cerebral circulation is widely patent bilaterally. The vertebral arteries are patent. The basilar artery is widely patent. The posterior cerebrals are p atent bilaterally. CONCLUSION: 1. No large or central vessel occlusion identified in the intracranial circulation. 2. Results were called directly to Dr. Shayne Vallejo. Electronically signed by: Carlos García MD 04/09/2018 1:13 PM EDT
--- NOTE | 2018-04-09 13:19 | CT ---
EXAM DATE: 04/09/2018 12:41 PM EDT AGE/SEX: 57 years / Female INDICATIONS: Stroke alert, right side weakness. CLINICAL DATA: This is the patient's initial encounter. Patient reports that signs and symptoms have been present for 1 day and indicates a pain score of Nonresponsive. MEDICAL/SURGICAL HISTORY: Non-responsive. Non-responsive. RADIATION DOSE: 10.26 CTDI (mGy) ; Combined studies COMPARISON: No prior exams available for comparison. TECHNIQUE: Volumetric scanning was performed using a multirow detector CT scanner during bolus infus ion of 80 ml Visipaque 320 (iodixanol) nonionic water-soluble contrast as a cumulative dose for mult iple exams. The data was postprocessed with a variety of visualization algorithms including full-vo lume maximum intensity projection, multiplanar sliding thin-slab reformation, curved-planar reformati on, and surface-rendering techniques. Using automated exposure control and adjustment of the mA and/ or kV according to patient size, radiation dose was kept as low as reasonably achievable to obtain op timal diagnostic quality images. DICOM format image data is available electronically for review and comparison. Percent stenosis is calculated using the diameter of the stenotic region over the diameter of the nor mal distal internal carotid artery. FINDINGS: Aortic Arch: There is a three-vessel origin of the great vessels from the aorta. No evidence of ost ial narrowing Right Carotid: The common carotid artery is intact. The carotid bulb has a normal configuration wit hout ulceration or narrowing. The internal carotid artery lumen is smooth without stenosis. The ext ernal carotid artery is intact. Left Carotid: The common carotid artery is intact. The carotid bulb has a normal configuration with out ulceration or narrowing. The internal carotid artery lumen is smooth without stenosis. The exte rnal carotid artery is intact. Vertebrals: The vertebral arteries have a symmetric diameter. No stenotic lesions are seen. CONCLUSION: 1. Negative CTA Carotid. Electronically signed by: Carlos García MD 04/09/2018 1:18 PM EDT
--- NOTE | 2018-04-09 13:24 | MB ---
cc: Robbie Vallejo MD, PhD DATE: 04/09/2018 NEUROLOGY CONSULT REASON FOR CONSULTATION: Stroke alert. HISTORY OF PRESENT ILLNESS: Ms. Perez is a 57-year-old woman who has a history of left hemisphere stroke in July of this year, causing right-sided weakness, had a history of a TIA back in February of this year as well as earlier this month, but the symptoms resolved. She has had residual right-sided weakness. She was at her doctor's appointment today and at noon had sudden onset of inability to talk with no new motor deficits; presented to the ER as a stroke alert. Continues with difficulty getting her words out. PAST MEDICAL HISTORY: She has a history of previous stroke left hemisphere with residual right-sided weakness. MEDICATIONS: She takes Plavix 75 mg daily as well as aspirin 81 mg daily. She does not take any anticoagulants. PAST MEDICAL HISTORY: History of hypertension, hypercholesterolemia. NEUROLOGICAL EXAMINATION: The patient is alert. She has difficulty getting words out. She has what appears to be an expressive aphasia. She does follow commands. Cranial nerves intact. On motor exam she has got a right hemiparesis; about 4/5 strength in the right arm and right leg. Normal strength on the left. IMAGING: CT of the brain reveals an old infarction in the left basal ganglia area. No acute changes. No hemorrhage. DIAGNOSTIC DATA: CT angiogram of the brain is currently pending. . LABORATORY DATA: Serum glucose is 93; other labs are currently pending. VITAL SIGNS: Blood pressure currently 157/118, temperature of 97.6 degrees, pulse is 63. IMPRESSION: Acute left hemisphere stroke with aphasia superimposed on previous stroke. RECOMMENDATION: If the blood pressure can be controlled the patient is a candidate for IV TPA; would proceed per protocol. I discussed the case with Dr. Ramirez in radiology, who will be reviewing the CT angiogram to see if there is any evidence of large vessel occlusion for intervention. We will follow the post-TPA order set with close neuro checks. No anticoagulants; no antiplatelets for 24 hours. I also recommend further evaluation with echocardiogram as well as MRI of the brain, lipid panel, review of the CTA of the carotids as well. Also, we will check hypercoagulable state, given her relative young age. Robbie Vallejo MD, PhD JERI/lillian , 12:55 PM , 01:01 PM
[2018-04-09 13:43] LABS: Creatine Kinase 77 U/L (26-192)
[2018-04-09 13:52] LABS: Beta HCG,Quantitative 8 mIU/mL (0-5)
--- NOTE | 2018-04-09 14:08 | XR ---
EXAM DATE: 04/09/2018 12:39 PM EDT AGE/SEX: 57 years / Female INDICATIONS: Stroke alert. Short of breath. CLINICAL DATA: This is the patient's initial encounter. Patient reports that signs and symptoms have been present for 1 day and indicates a pain score of 0/10. MEDICAL/SURGICAL HISTORY: Hypertension. Stroke. None. COMPARISON: [facility] [place], CHEST 1V SINGLE AP, 01/24/2018. . FINDINGS: A single AP view of the chest demonstrates the lungs to be symmetrically aerated without evidence of mass, infiltrate or effusion. The cardiomediastinal contours are unremarkable. Osseous structures a re intact. CONCLUSION: No acute cardiopulmonary findings. Electronically signed by: Carlos García MD 04/09/2018 2:07 PM EDT
[2018-04-09 14:33] LABS: Bilirubin,Urine Negative (Negative); Clarity,Urine Clear (Clear); Color,Urine Yellow (Yellw/Straw); Glucose,Urine (UA) Negative (Negative); Leukocyte Esterase,Urine Small (Negative); Nitrite,Urine Negative (Negative); Specific Gravity,Urine 1.023 (1.002-1.035); Squamous Epithelial Cell,Urine 2 /hpf (0-5)
[2018-04-09 14:42] LABS: Barbiturate Screen,Urine Neg (Neg); Cannabinoid Screen,Urine Neg (Neg); Cocaine Screen,Urine Neg (Neg)
[2018-04-09 14:45] LABS: Amphetamine Screen,Urine Neg (Neg)
[2018-04-09] MEDS ORDERED: Bisacodyl 10 MG Supp RECTAL PRN (14:46)
[2018-04-09 15:03] LABS: Opiate Screen,Urine Neg (Neg)
--- NOTE | 2018-04-09 17:23 | P.HPCC ---
History of Present Illness Service: Critical care medicine Primary Care Physician: UNKNOWN Chief Complaint: Unable to speak, stroke alert History of Present Illness: 57-year-old woman developed sudden onset of aphasia earlier today. This was associated with some nausea and vomiting. She arrived in the emergency department where she ruled in for TPA administration with subsequent resolution of the aphasia. She has residual right upper and lower extremity weakness from a previous stroke. There was no trauma associated with this event. She has been on aspirin therapy. - Diagnosis (1) Acute ischemic stroke (2) Expressive aphasia Inpatient Certification: I certify that the inpatient services were ordered in accordance with Medicare regulations governing the order. This includes certification that hospital inpatient services are reasonable and necessary and in the case of services not specified as inpatient-only under 42 CFR 419.22(n), that they are appropriately provided as inpatient services in accordance to with the 2-midnight benchmark under 43 CFR 412.3(e) Estimated Total Length of Stay (Days): 2 Plans for Post Hospital Care: Home Review of Systems Unable to obtain because she is unable to speak on arrival. [facility] - History History Provided By: Family Member - Medical History Medical History: Medical History (Last Reviewed 04/09/18 @ 13:00 by DAIANA Mcclure) HBP (high blood pressure) HBP (high blood pressure) High cholesterol Stroke - Surgical History Surgical History: Surgical History (Last Reviewed 04/09/18 @ 13:00 by DAIANA Mcclure) Hx of tonsillectomy - Tobacco History Second Hand Smoke Exposure: No Tobacco Use In Past 30 Days: No Smoking Status: Former smoker Tobacco Type: Cigarettes - Alcohol History How Often Do You Have a Drink Containing Alcohol: Never - Substance Use History Substance History: No History of Abuse - Travel History Recent Travel in the [place] Within the Last 8 Weeks: No Recent Travel Out of the Country Within the Last 8 Weeks: No - Immunization History Tetanus Immunization: Unsure Medications and Allergies Active Medications: Active Medications Acetaminophen (Tylenol) 650 mg PO Q6H PRN PRN Reason: PAIN 1-10 AND/OR FEVER >101F Al Hydroxide/Mg Hydroxide (Milk Of Magnesia Liq) 30 ml PO Q12H PRN PRN Reason: Mild Constipation Albuterol (Duoneb Neb (Prn)) 1 ampul NEB Q2HR NEB PRN PRN Reason: WHEEZING Bisacodyl (Dulcolax Supp) 10 mg RECTAL DAILY PRN PRN Reason: SEVERE CONSITIPATION Chlorhexidine Gluconate (Chlorhexidine 2% Cloth) 3 pack TOPICAL DAILY@0400 [facility] Stop: 04/15/18 03:59 Chlorhexidine Gluconate (Chlorhexidine 2% Cloth) 3 pack TOPICAL DAILY@0400 PRN PRN Reason: Extra cloth needed Stop: 04/15/18 03:59 Famotidine (Pepcid) 20 mg PO BID [facility] Sodium Chloride (Ns Inj) 1,000 mls @ 70 mls/hr IV.CONT .[id number] [facility] Last Admin: 04/09/18 13:03 Dose: 70 mls/hr Lactulose (Lactulose Liq) 30 ml PO DAILY PRN PRN Reason: SEVERE CONSITIPATION Senna/Docusate Sodium (Tova-Colace) 1 tab PO BID [facility] Sennosides (Senokot) 17.2 mg PO Q12H PRN PRN Reason: Moderate Constipation Sodium Chloride (Ns Flush) 2 ml IV.FLUSH BID [facility] Sodium Chloride (Ns Flush) 2 ml IV.FLUSH UNSCH PRN PRN Reason: FLUSH AFTER USING IV ACCESS Allergies Allergy/AdvReac Type Severity Reaction Status Date / Time No Known Allergies Allergy Verified 01/24/18 09:32 Home Medications Medication Instructions Recorded Confirmed Type aspirin 325 mg PO DAILY 01/24/18 01/24/18 History gabapentin 300 mg PO TID 01/24/18 01/24/18 History losartan 100 mg PO DAILY 01/24/18 01/24/18 History trazodone 50 mg PO DAILY 01/24/18 01/24/18 History Results - Labs CBC & Chem 7: 04/09/18 12:48 Labs: Short CBC 04/09/18 Range/Units 12:48 WBC 6.4 (4.0-11.0) th/mm3 Hgb 14.1 (11.6-15.3) gm/dL Hct 42.2 (35.0-46.0) % Plt Count 287 (150-450) th/mm3 Cardiac Enzymes 04/09/18 Range/Units 12:48 Total Creatine Kinase 77 (26-192) U/L Troponin I Less than 0.02 L (0.02-0.05) ng/mL Urine 04/09/18 Range/Units Unknown Urine Color Yellow (Yellw/Straw) Urine Clarity Clear (Clear) Urine pH 7.0 (5.0-8.5) Ur Specific [place] 1.023 (1.002-1.035) Urine Protein Negative (Neg-Trace) mg/dL Urine Glucose (UA) Negative (Negative) mg/dL - Imaging Impressions Chest X-Ray 04/09/18 12:39 CONCLUSION: No acute cardiopulmonary findings. Head CTA 04/09/18 12:39 CONCLUSION: 1. No large or central vessel occlusion identified in the intracranial circulation. 2. Results were called directly to Dr. Shayne Vallejo. Neck CTA 04/09/18 12:39 CONCLUSION: 1. Negative CTA Carotid. Head CT 04/09/18 12:40 CONCLUSION: 1. Old area of infarct involving the basal ganglia on the right. 2. No acute abnormality. Report was called by [Dr. James García to Dr. Shayne Vallejo ] Exam Vital signs: Vital Signs 04/09/18 12:16 04/09/18 12:42 04/09/18 13:01 Temperature 97.6 F Pulse Rate 63 74 Respiratory Rate 18 17 Blood Pressure 157/118 H 163/76 H Pulse Oximetry 97 98 98 04/09/18 13:17 04/09/18 14:05 04/09/18 15:06 Temperature Pulse Rate 61 88 Respiratory Rate 17 17 Blood Pressure 144/70 H 150/64 H Pulse Oximetry 100 100 100 04/09/18 16:31 Temperature Pulse Rate Respiratory Rate Blood Pressure Pulse Oximetry 96 Intake & Output 04/08/18 04/09/18 04/09/18 18:59 06:59 18:59 Intake Total 69.3 / 69.3 Balance 69.3 / 69.3 Weight 78.018 kg Intake: IV 69.3 / 69.3 Activase Drip 69.3 MG In Bag/ 69.3 / 69.3 Syringe 1 EACH @ 69.3 mls/hr IV .SIG ONCE ONE Rx#:[id number] Narrative: Exam Narrative: GENERAL: Alert, anxious. SKIN: Warm, dry. Diaphoretic on arrival. HEAD: Atraumatic. Normocephalic. EYES: Pupils equal and round. No scleral icterus. No injection or drainage. ENT: No nasal bleeding or discharge. Mucous membranes pink and moist. NECK: Trachea midline. Airway widely patent, no obstructive noises. CARDIOVASCULAR: Regular rate and rhythm. No murmur appreciated. No JVD. RESPIRATORY: No accessory muscle use. Clear to auscultation. Breath sounds equal bilaterally. Comfortable respiratory pattern. GASTROINTESTINAL: Abdomen soft, non-tender, nondistended. No guarding, bowel sounds active. MUSCULOSKELETAL: No obvious deformities. No clubbing. No cyanosis. No edema. Warm, well-perfused NEUROLOGICAL: Awake and alert. Conversant, 3/5 right hand grasp, right leg 4/5 motor, 5/5 motor strength in left upper and lower extremities. PSYCHIATRIC: Appropriate mood and anxious affect; insight and judgment normal. Anxious. Caprini VTE Risk Assessment Caprini VTE Risk Assessment: Moderate/High Risk (score >= 2) VTE Pharmacological Exception Reason: High risk for bleeding Caprini Risk Assessment Model: Point Value = 1 Point Value = 2 Point Value = 3 Point Value = 5 Age 41-60 Minor surgery BMI > 25 kg/m2 Swollen legs Varicose veins or History of unexplained or recurrent spontaneous Oral contraceptives or hormone replacement Sepsis (< 1 month) Serious lung disease, including pneumonia (< 1 month) Abnormal pulmonary function Acute myocardial infarction Congestive heart failure (< 1 month) History of inflammatory bowel disease Medical patient at bed rest Age 61-74 Arthroscopic surgery Major open surgery (> 45 min) Laparoscopic surgery (> 45 min) Malignancy Confined to bed (> 72 hours) Immobilizing plaster cast Central venous access Age >= 75 History of VTE Family history of VTE Factor V Leiden Prothrombin [id number] Lupus anticoagulant Anticardiolipin antibodies Elevated serum homocysteine Heparin-induced thrombocytopenia Other congenital or acquired thrombophilia Stroke (< 1 month) Elective arthroplasty Hip, pelvis, or leg fracture Acute spinal cord injury (< 1 month) Prophylaxis Regimen: Total Risk Factor Score Risk Level Prophylaxis Regimen 0-1 Low Early ambulation 2 Moderate Order ONE of the following: *Sequential Compression Device (SCD) *Heparin 5000 units SQ BID 3-4 Higher Order ONE of the following medications: *Heparin 5000 units SQ TID *Enoxaparin/Lovenox 40 mg SQ daily (WT < 150 kg, CrCl > 30 mL/min) *Enoxaparin/Lovenox 30 mg SQ daily (WT < 150 kg, CrCl > 10-29 mL/min) *Enoxaparin/Lovenox 30 mg SQ BID (WT < 150 kg, CrCl > 30 mL/min) AND/OR *Sequential Compression Device (SCD) 5 or more Highest Order ONE of the following medications: *Heparin 5000 units SQ TID (Preferred with Epidurals) *Enoxaparin/Lovenox 40 mg SQ daily (WT < 150 kg, CrCl > 30 mL/min) *Enoxaparin/Lovenox 30 mg SQ daily (WT < 150 kg, CrCl > 10-29 mL/min) *Enoxaparin/Lovenox 30 mg SQ BID (WT < 150 kg, CrCl > 30 mL/min) AND *Sequential Compression Device (SCD) Assessment and Plan - Problem List (1) Acute ischemic stroke Code(s): I63.9 - Cerebral infarction, unspecified Status: Acute (2) Expressive aphasia Code(s): R47.01 - Aphasia Status: Acute - Assessment and Plan Plan: Plan: 1. Post TPA order set 2. Maintain systolic blood pressure less than 160 following TPA administration 3. Swallow evaluation, diet afterwards if swallow intact. 4. Cardiac echo. 5. Pepcid for GI ulcer prophylaxis. 6. Chemical DVT prophylaxis contraindicated after TPA. 7. Hold SCDs for 24 hours following TPA. 8. Neurology evaluation. 9. Repeat head CT after 24 hours or sooner for neurological change. Overall impression: This woman has had previous strokes and presents today with acute stroke symptoms. She ruled in for TPA administration and appears to have had a good resolution of her expressive aphasia. Her right upper extremity remains slightly weak.
[2018-04-09] MEDS: Senna/Docusate Sodium 8.6/50 MG Tablet PO SCH (21:04)
[2018-04-09] MEDS: Famotidine 20 MG Tablet PO SCH (21:04)
[2018-04-09] MEDS: hydrALAZINE HCl Inj 20 MG/ML Vial IV.PUSH PRN (21:04)
[2018-04-10] MEDS: Acetaminophen 325 MG Tablet PO PRN (03:46)
[2018-04-10] MEDS: Sod Chloride 0.9% Inj 1,000 ML IV.CONT SCH ×2 (03:47→18:05)
[2018-04-10] MEDS ORDERED: Chlorhexidine Gluconate 2% 1 Pack (2 Cloths) TOPICAL PRN (04:00)
[2018-04-10] MEDS: Chlorhexidine Gluconate 2% 1 Pack (2 Cloths) TOPICAL SCH (04:50)
--- NOTE | 2018-04-10 07:12 | P.PNCC ---
Subjective Subjective Remarks/Hospital Course: 57-year-old woman developed sudden onset of aphasia earlier today. This was associated with some nausea and vomiting. She arrived in the emergency department where she ruled in for TPA administration with subsequent resolution of the aphasia. She has residual right-sided upper and lower extremity weakness from a previous stroke. There was no trauma associated with this event. She has been on aspirin therapy. 04/10: Expressive a fascia resolved rapidly following TPA administration. Patient had been on antiplatelet therapy prior to this event. She may require full anticoagulation, will defer to neurology service. - Diagnosis (1) Acute ischemic stroke (2) Expressive aphasia Objective Vital Signs / I&O: Vital Signs 04/09/18 12:16 04/09/18 12:42 04/09/18 13:01 Temperature 97.6 F Pulse Rate 63 74 Respiratory Rate 18 17 Blood Pressure 157/118 H 163/76 H Pulse Oximetry 97 98 98 04/09/18 13:17 04/09/18 14:05 04/09/18 15:06 Temperature Pulse Rate 61 88 Respiratory Rate 17 17 Blood Pressure 144/70 H 150/64 H Pulse Oximetry 100 100 100 04/09/18 16:31 04/09/18 18:00 04/09/18 20:00 Temperature 98.6 F 98.2 F Pulse Rate 74 62 Respiratory Rate 16 12 Blood Pressure 164/65 H 138/69 Pulse Oximetry 96 98 95 04/10/18 00:00 04/10/18 04:00 Temperature 98.4 F 98.6 F Pulse Rate 66 62 Respiratory Rate 21 27 H Blood Pressure 159/79 H 133/67 Pulse Oximetry 95 93 L Intake & Output 04/09/18 04/10/18 04/10/18 18:59 06:59 18:59 Intake Total 189.3 / 189.3 1240 / 1240 Output Total 0 / 0 Balance 189.3 / 189.3 1240 / 1240 Weight 78.018 kg 80.3 kg Intake: IV 69.3 / 69.3 1000 / 1000 NS Inj 1,000 ML @ 70 mls/hr IV. 1000 / 1000 CONT .[id number] [facility] Rx#:[id number] Activase Drip 69.3 MG In Bag/ 69.3 / 69.3 Syringe 1 EACH @ 69.3 mls/hr IV .SIG ONCE ONE Rx#:[id number] Oral 120 / 120 240 / 240 Output: Urine 0 / 0 Other: # Voids 3 Result Diagrams: 04/09/18 12:48 Objective Remarks: - Imaging Chest X-Ray 04/09/18 12:39 CONCLUSION: No acute cardiopulmonary findings. Head CTA 04/09/18 12:39 CONCLUSION: 1. No large or central vessel occlusion identified in the intracranial circulation. 2. Results were called directly to Dr. Shayne Vallejo. Neck CTA 04/09/18 12:39 CONCLUSION: 1. Negative CTA Carotid. Head CT 04/09/18 12:40 CONCLUSION: 1. Old area of infarct involving the basal ganglia on the right. 2. No acute abnormality. Report was called by [Dr. James García to Dr. Shayne Vallejo ] Exam Narrative: GENERAL: Alert, anxious. SKIN: Warm, dry. Diaphoretic on arrival. HEAD: Atraumatic. Normocephalic. EYES: Pupils equal and round. No scleral icterus. No injection or drainage. ENT: No nasal bleeding or discharge. Mucous membranes pink and moist. NECK: Trachea midline. Airway widely patent, no obstructive noises. Clear secretions normally. CARDIOVASCULAR: Regular rate and rhythm, rate 59. Blood pressure 145/70. No murmur appreciated. No JVD. RESPIRATORY: No accessory muscle use. Clear to auscultation. Breath sounds equal bilaterally. Comfortable respiratory pattern. GASTROINTESTINAL: Abdomen soft, non-tender, nondistended. No guarding, bowel sounds active. MUSCULOSKELETAL: No obvious deformities. No clubbing. No cyanosis. No edema. Warm, well-perfused NEUROLOGICAL: Awake and alert. Conversant, 3/5 right hand grasp. Right leg 4/ 5 motor. 5/5 left hand grasp and left leg motor. Speech is clear PSYCHIATRIC: Appropriate mood and anxious affect; insight and judgment normal. Talkative but calm. Assessment and Plan - Problem List (1) Acute ischemic stroke Code(s): I63.9 - Cerebral infarction, unspecified Status: Acute (2) Expressive aphasia Code(s): R47.01 - Aphasia Status: Acute - Assessment and Plan Plan: Plan: 1. Post TPA order set 2. Maintain systolic blood pressure less than 160 following TPA administration 3. Swallow evaluation, diet afterwards if swallow intact. 4. Cardiac echo. 5. Pepcid for GI ulcer prophylaxis. 6. Chemical DVT prophylaxis contraindicated after TPA. 7. Hold SCDs for 24 hours following TPA. 8. Neurology evaluation. 9. Repeat head CT after 24 hours or sooner for neurological change. Overall impression: This woman has had previous strokes and presents today with acute stroke symptoms. She ruled in for TPA administration and appears to have had a good resolution of her expressive aphasia. Blood pressure is acceptable in the 140s systolic. Her right upper extremity remains slightly weak.
[2018-04-10] MEDS: Senna/Docusate Sodium 8.6/50 MG Tablet PO SCH ×2 (08:03→21:00)
[2018-04-10] MEDS: Famotidine 20 MG Tablet PO SCH ×2 (08:03→20:53)
[2018-04-10] MEDS: hydrALAZINE HCl Inj 20 MG/ML Vial IV.PUSH PRN (13:02)
--- NOTE | 2018-04-10 13:58 | CT ---
EXAM DATE: 04/10/2018 1:27 PM EDT AGE/SEX: 57 years / Female INDICATIONS: Post TPA CLINICAL DATA: This is the patient's initial encounter. Patient reports that signs and symptoms have been present for 1 day and indicates a pain score of 5/10. MEDICAL/SURGICAL HISTORY: Stroke. Tonsillectomy. RADIATION DOSE: 66.37 CTDI (mGy) [place] [facility] [place] [facility] [place] 3[place]. . TECHNIQUE: CT of the head without contrast. Using automated exposure control and adjustment of the mA and/or kV according to patient size, radiation dose was kept as low as reasonably achievable to ob tain optimal diagnostic quality images. DICOM format image data is available electronically for revi ew and comparison. FINDINGS: Cerebrum: There is mild generalized atrophy and ventricles are normal given the degree of atrophy. M ild periventricular white matter change is present. There is stable low-density in the left periventr icular white matter and left basal ganglia. No midline shift, mass lesion, hemorrhage or acute infarc tion. No extraaxial fluid collections are seen. Posterior Fossa: The cerebellum and brainstem demonstrate no acute abnormality. The 4th ventricle is midline. The cerebellopontine angle is within normal limits. Extracranial: The visualized sinuses are clear. Skull: The calvaria is intact. No skull fracture. CONCLUSION: 1. Stable noncontrast head CT. No acute hemorrhage is identified. 2. Stable generalized atrophy and periventricular white matter change characteristic of chronic micr ovascular ischemia. Old left lacune is again identified. . Electronically signed by: Juan Tanner MD 04/10/2018 1:57 PM EDT
--- NOTE | 2018-04-10 15:18 | ECG ---
Date Performed: 04/09/2018 Time Performed: 13:00:00 PTAGE: 57 years EKG: Sinus rhythm LOW QRS VOLTAGE IN PRECORDIAL LEADS LEFT ANTERIOR FASCICULAR BLOCK POSSIBLE ANTERIOR MYOCARDIAL INFA RCTION ABNORMAL ECG Since the PREVIOUS TRACING , no significant change noted PREVIOUS TRACIN01/24/2018 09.35 DOCTOR: Joana Gutierrez Interpretating Date/Time 04/10/2018 15:14:18
--- NOTE | 2018-04-10 19:00 | P.PNNEU ---
Subjective Subjective Comments: speech back to normal after tpa still with residual right sided weakness since original cva Active Medications: Active Medications Acetaminophen (Tylenol) 650 mg PO Q6H PRN PRN Reason: PAIN 1-10 AND/OR FEVER >101F Last Admin: 04/10/18 03:46 Dose: 650 mg Al Hydroxide/Mg Hydroxide (Milk Of Magnesia Liq) 30 ml PO Q12H PRN PRN Reason: Mild Constipation Albuterol (Duoneb Neb (Prn)) 1 ampul NEB Q2HR NEB PRN PRN Reason: WHEEZING Aspirin (Aspirin) 325 mg PO DAILY [facility] Bisacodyl (Dulcolax Supp) 10 mg RECTAL DAILY PRN PRN Reason: SEVERE CONSITIPATION Chlorhexidine Gluconate (Chlorhexidine 2% Cloth) 3 pack TOPICAL DAILY@0400 [facility] Stop: 04/15/18 03:59 Last Admin: 04/10/18 04:50 Dose: 3 pack Chlorhexidine Gluconate (Chlorhexidine 2% Cloth) 3 pack TOPICAL DAILY@0400 PRN PRN Reason: Extra cloth needed Stop: 04/15/18 03:59 Clopidogrel Bisulfate (Plavix) 75 mg PO DAILY [facility] Famotidine (Pepcid) 20 mg PO BID [facility] Last Admin: 04/10/18 08:03 Dose: 20 mg Hydralazine HCl (Apresoline Inj) 10 mg IV.PUSH Q1H PRN PRN Reason: SBP > 160; *KEEP SBP < 160* Last Admin: 04/10/18 13:02 Dose: 10 mg Sodium Chloride (Ns Inj) 1,000 mls @ 70 mls/hr IV.CONT .[id number] [facility] Last Admin: 04/10/18 03:47 Dose: 70 mls/hr Lactulose (Lactulose Liq) 30 ml PO DAILY PRN PRN Reason: SEVERE CONSITIPATION Lorazepam (Ativan Inj) 1 mg IV.PUSH ONCE ONE Stop: 04/10/18 18:57 Ondansetron HCl (Zofran Inj) 4 mg IV.PUSH Q6H PRN PRN Reason: nausea Last Admin: 04/10/18 16:14 Dose: 4 mg Senna/Docusate Sodium (Tova-Colace) 1 tab PO BID [facility] Last Admin: 04/10/18 08:03 Dose: 1 tab Sennosides (Senokot) 17.2 mg PO Q12H PRN PRN Reason: Moderate Constipation Sodium Chloride (Ns Flush) 2 ml IV.FLUSH BID [facility] Last Admin: 04/10/18 08:03 Dose: Not Given Sodium Chloride (Ns Flush) 2 ml IV.FLUSH UNSCH PRN PRN Reason: FLUSH AFTER USING IV ACCESS Allergies/Adverse Reactions: Allergies Allergy/AdvReac Type Severity Reaction Status Date / Time No Known Allergies Allergy Verified 01/24/18 09:32 Physical Exam Vital signs: Vital Signs 04/09/18 20:00 04/10/18 00:00 04/10/18 04:00 Temperature 98.2 F 98.4 F 98.6 F Pulse Rate 62 66 62 Respiratory Rate 12 21 27 H Blood Pressure 138/69 159/79 H 133/67 Pulse Oximetry 95 95 93 L 04/10/18 07:54 04/10/18 08:00 04/10/18 09:00 Temperature 98.7 F Pulse Rate 64 60 Respiratory Rate 20 Blood Pressure 156/73 H Pulse Oximetry 96 97 04/10/18 12:00 04/10/18 15:44 Temperature 98.6 F 98.2 F Pulse Rate 65 74 Respiratory Rate 15 16 Blood Pressure 176/78 H 148/70 H Pulse Oximetry 95 96 Intake & Output 04/09/18 04/10/18 04/10/18 18:59 06:59 18:59 Intake Total 189.3 / 189.3 1240 / 1240 240 / 240 Output Total 0 / 0 Balance 189.3 / 189.3 1240 / 1240 240 / 240 Weight 78.018 kg 80.3 kg 80.4 kg Intake: IV 69.3 / 69.3 1000 / 1000 NS Inj 1,000 ML @ 70 mls/hr IV. 1000 / 1000 CONT .[id number] [facility] Rx#:[id number] Activase Drip 69.3 MG In Bag/ 69.3 / 69.3 Syringe 1 EACH @ 69.3 mls/hr IV .SIG ONCE ONE Rx#:[id number] Oral 120 / 120 240 / 240 240 / 240 Output: Urine 0 / 0 Other: # Voids 3 2 # Bowel Movements 1 Weight On Admission 80.4 kg - Routine Neurological Exam alert, speech is fluent CN intact MOTOR 4/5 LUE, 5/5 RUE Objective Laboratory Results - last 24 hr 04/10/18 04/10/18 00:09 09:48 POC Glucose 92 Nasal Screen MRSA (PCR) Not detected Review/Management - Diagnosis (1) CVA (cerebral vascular accident) Code(s): I63.9 - Cerebral infarction, unspecified Status: Acute Current Visit: Yes - Review/Management Plan: improved after iv tpa. [address] negative for bleed Resume plavix 75 mg daily plus asa 325 mg daily check echocardiogram and labs for hypercoag state. Monitor telemetry to r/o afib. (1) CVA (cerebral vascular accident) Qualifiers: CVA mechanism: unspecified Qualified Code(s): I63.9 - Cerebral infarction, unspecified
[2018-04-11] MEDS: Sod Chloride 0.9% Inj 1,000 ML IV.CONT SCH ×2 (04:00→09:08)
[2018-04-11 06:54] LABS: Chol/HDL Ratio 2.37 Ratio; HDL Cholesterol 59.3 mg/dL (40.0-60.0)
--- NOTE | 2018-04-11 08:48 | MR ---
EXAM DATE: 04/11/2018 12:00 AM EDT AGE/SEX: 57 years / Female INDICATIONS: Stroke. CLINICAL DATA: This is the patient's initial encounter. Patient reports that signs and symptoms have been present for 2 days and indicates a pain score of 0/10. MEDICAL/SURGICAL HISTORY: Hypertension. Breast biopsy. Tonsillectomy. COMPARISON: [facility], MRI BRAIN W/O CONTRAST, 07/21/2017. . TECHNIQUE: Multiplanar, multisequence examination of the brain was performed without contrast. FINDINGS: Cerebrum: There is mild generalized atrophy with ventricular size within normal limits given the degr ee of atrophy. No midline shift, mass lesion, hemorrhage or acute infarction. No extraaxial fluid c ollections are seen. The pituitary gland and suprasellar cistern are normal in configuration. There is a stable punctate area of susceptibility artifact in the left parietal high convexity. Old lacune is present in the left periventricular white matter and there are chronic changes involving the corpu s callosum. White Matter: There is mild periventricular and subcortical white matter signal change. Posterior Fossa: The cerebellum and brainstem demonstrate no acute abnormality. The 4th ventricle is midline. The cerebellopontine angle is within normal limits. The cerebellar tonsils are normal in p osition. Diffusion Imaging: No areas of restricted diffusion are seen. Extracranial: The visualized sinuses are clear. CONCLUSION: 1. No acute intracranial abnormality is identified. There are no findings to indicate recent ischemi a and no acute blood products are visualized. 2. Chronic changes include generalized atrophy including old lacunar in the left periventricular reg ion, chronic changes involving the corpus callosum, and a focus of remote hemorrhage in the left jose etal high convexity. Electronically signed by: Juan Tanner MD 04/11/2018 8:47 AM EDT
[2018-04-11] MEDS: Famotidine 20 MG Tablet PO SCH ×2 (09:09→20:45)
[2018-04-11] MEDS: Aspirin 325 MG Tablet PO SCH (09:09)
[2018-04-11] MEDS: Senna/Docusate Sodium 8.6/50 MG Tablet PO SCH ×2 (09:09→20:44)
[2018-04-11] MEDS: Chlorhexidine Gluconate 2% 1 Pack (2 Cloths) TOPICAL SCH (09:10)
--- NOTE | 2018-04-11 14:13 | P.PN ---
Subjective Interval history: Follow up acute ischemic CVA s/p TPA 04/11/18-patient seen and examined; no longer with expressive aphasia. Repeat Brain MRI negative Physical Exam Vital signs: Vital Signs 04/10/18 15:44 04/10/18 20:00 04/11/18 00:00 Temperature 98.2 F 98.4 F 98 F Pulse Rate 74 75 74 Respiratory Rate 16 18 20 Blood Pressure 148/70 H 132/66 153/84 H Pulse Oximetry 96 96 96 04/11/18 00:31 04/11/18 04:00 04/11/18 08:00 Temperature 97.8 F 98.3 F Pulse Rate 69 84 Respiratory Rate 20 18 Blood Pressure 141/79 H 170/79 H Pulse Oximetry 96 95 97 04/11/18 09:00 04/11/18 12:00 Temperature 98.3 F Pulse Rate 84 84 Respiratory Rate 18 Blood Pressure 147/71 H Pulse Oximetry 99 Intake & Output 04/10/18 04/11/18 04/11/18 18:59 06:59 18:59 Intake Total 1240 / 1240 1120 / 1120 1000 / 1000 Balance 1240 / 1240 1120 / 1120 1000 / 1000 Weight 80.4 kg 80.4 kg Intake: IV 1000 / 1000 1000 / 1000 1000 / 1000 NS Inj 1,000 ML @ 70 mls/hr IV. 1000 / 1000 1000 / 1000 1000 / 1000 CONT .[id number] [facility] Rx#:[id number] Oral 240 / 240 120 / 120 Other: # Voids 2 3 # Bowel Movements 1 Weight On Admission 80.4 kg Narrative: GENERAL: NAD SKIN: Warm and dry. HEAD: Normocephalic. EYES: No scleral icterus. No injection or drainage. NECK: Supple, trachea midline. No JVD or lymphadenopathy. CARDIOVASCULAR: Regular rate and rhythm without murmurs, gallops, or rubs. RESPIRATORY: Breath sounds equal bilaterally. No accessory muscle use. GASTROINTESTINAL: Abdomen soft, non-tender, nondistended. MUSCULOSKELETAL: No cyanosis, or edema. BACK: Nontender without obvious deformity. No CVA tenderness. Results - Labs CBC & Chem 7: 04/09/18 12:48 Laboratory Results - last 24 hr 04/11/18 04/11/18 04/11/18 06:06 07:44 13:08 POC Glucose 100 115 H Triglycerides 87 Cholesterol 141 LDL Cholesterol, Calc 64 HDL Cholesterol 59.3 Cholesterol/HDL Ratio 2.37 - Imaging Impressions Head MRI 04/11/18 00:00 CONCLUSION: 1. No acute intracranial abnormality is identified. There are no findings to indicate recent ischemia and no acute blood products are visualized. 2. Chronic changes include generalized atrophy including old lacunar in the left periventricular region, chronic changes involving the corpus callosum, and a focus of remote hemorrhage in the left parietal high convexity. Assessment and Plan - Assessment (1) Acute ischemic stroke Code(s): I63.9 - Cerebral infarction, unspecified Status: Acute - Plan 57 years old female with: Acute ischemic CVA s/p TPA Repeat Brain MRI negative Currently on ASA 325mg daily, Plavix 75mg daily PT/OT to treat and eval 2D echo report pending Appreciate input from Neurology Pepcid for GI ulcer prophylaxis. Chemical DVT prophylaxis contraindicated after TPA.
--- NOTE | 2018-04-11 16:11 | ECHRPT ---
Indication: CVA/TIA CONCLUSIONS Normal left ventricular size. Wall thickness is measured at the upper limits of normal. The left ventricular systolic function is normal with an estimated ejection fraction in the range of 55-60%. [id number] mitral valve regurgitation. There is trace tricuspid valve regurgitation. BP: / HR: Rhythm: Sinus MEASUREMENTS (Male / Female) Normal Values Technical Quality:Fair 2D ECHO LV Diastolic Diameter PLAX 4.7 cm 4.2 - 5.9 / 3.9 - 5.3 cm LV Systolic Diameter PLAX 3.5 cm IVS Diastolic Thickness 1.0 cm 0.6 - 1.0 / 0.6 - 0.9 cm LVPW Diastolic Thickness 1.0 cm 0.6 - 1.0 / 0.6 - 0.9 cm LV Relative Wall Thickness 0.4 RV Internal Dim ED PLAX 2.2 cm LVOT Diameter 2.1 cm Aortic Root Diameter 3.1 cm LA Systolic Diameter LX 2.8 cm 3.0 - 4.0 / 2.7 - 3.8 cm M-MODE AV Cusp Separation MM 2.0 cm DOPPLER AV Peak Velocity 164.0 cm/s AV Peak Gradient 10.8 mmHg AV Mean Gradient 5.0 mmHg AV Velocity Time Integral 30.9 cm LVOT Peak Velocity 81.2 cm/s LVOT Peak Gradient 2.6 mmHg LVOT Velocity Time Integral 18.0 cm AV Area Cont Eq vti 2.0 cm AV Area Cont Eq pk 1.7 cm Mitral E Point Velocity 88.8 cm/s Mitral A Point Velocity 88.8 cm/s Mitral E to A Ratio 1.0 LV E' Lateral Velocity 10.5 cm/s Mitral E to LV E' Lateral Ratio 8.5 LV E' Septal Velocity 7.2 cm/s Mitral E to LV E' Septal Ratio 12.3 PV Peak Velocity 57.9 cm/s PV Peak Gradient 1.3 mmHg FINDINGS LEFT VENTRICLE Normal left ventricular size. Wall thickness is measured at the upper limits of normal. The left ventricular systolic function is normal with an estimated ejection fraction in the range of 55-60%. RIGHT VENTRICLE Normal right ventricular size and systolic function. LEFT ATRIUM The left atrial size is normal. RIGHT ATRIUM The right atrial size is normal. ATRIAL SEPTUM No atrial level shunt is demonstrated by color flow Doppler interrogation. AORTA The aortic root and proximal ascending aorta are normal in size on limited imaging. MITRAL VALVE [id number] mitral valve regurgitation. AORTIC VALVE Trileaflet aortic valve. No aortic valve stenosis or regurgitation. TRICUSPID VALVE There is trace tricuspid valve regurgitation. PULMONARY VALVE No pulmonary valve regurgitation or stenosis. VESSELS The inferior vena cava was not well visualized. PERICARDIUM No pericardial effusion. Santo [place] MD (Electronically Signed) Final Date:11 April 2018 16:10
[2018-04-11] MEDS: Acetaminophen 325 MG Tablet PO PRN (19:46)
[2018-04-12] MEDS: Chlorhexidine Gluconate 2% 1 Pack (2 Cloths) TOPICAL SCH (03:07)
[2018-04-12] MEDS: Aspirin 325 MG Tablet PO SCH (10:34)
[2018-04-12] MEDS: Famotidine 20 MG Tablet PO SCH ×2 (10:34→20:36)
--- NOTE | 2018-04-12 10:35 | P.PN ---
Subjective Interval history: Follow up acute ischemic CVA s/p TPA 04/11/18-patient seen and examined; no longer with expressive aphasia. Repeat Brain MRI negative 04/12/18-patient seen and examined, complains of nausea without any emesis. BP labile. Physical Exam Vital signs: Vital Signs 04/11/18 12:00 04/11/18 16:00 04/11/18 20:00 Temperature 98.3 F 98.0 F 97.9 F Pulse Rate 84 80 73 Respiratory Rate 18 18 18 Blood Pressure 147/71 H 128/86 164/78 H Pulse Oximetry 99 100 96 04/11/18 20:24 04/12/18 00:00 04/12/18 01:11 Temperature 98.2 F Pulse Rate 71 59 L Respiratory Rate 18 18 Blood Pressure 158/73 H Pulse Oximetry 95 04/12/18 04:00 04/12/18 04:09 04/12/18 08:00 Temperature 97.9 F 98.3 F Pulse Rate 67 56 L 71 Respiratory Rate 18 16 Blood Pressure 176/91 H 183/93 H Pulse Oximetry 97 95 04/12/18 08:20 Temperature Pulse Rate 55 L Respiratory Rate Blood Pressure Pulse Oximetry Intake & Output 04/11/18 04/12/18 04/12/18 18:59 06:59 18:59 Intake Total 1120 / 1120 500 / 500 Output Total 0 / 0 Balance 1120 / 1120 500 / 500 Weight 69.2 kg Intake: IV 1000 / 1000 500 / 500 NS Inj 1,000 ML @ 70 mls/hr IV. 1000 / 1000 500 / 500 CONT .[id number] [facility] Rx#:[id number] Oral 120 / 120 Output: Urine 0 / 0 Other: # Voids 3 1 Date of Last Bowel Movement 04/10/18 # Bowel Movements 1 Narrative: GENERAL: NAD SKIN: Warm and dry. HEAD: Normocephalic. EYES: No scleral icterus. No injection or drainage. NECK: Supple, trachea midline. No JVD or lymphadenopathy. CARDIOVASCULAR: Regular rate and rhythm without murmurs, gallops, or rubs. RESPIRATORY: Breath sounds equal bilaterally. No accessory muscle use. GASTROINTESTINAL: Abdomen soft, non-tender, nondistended. MUSCULOSKELETAL: No cyanosis, or edema. BACK: Nontender without obvious deformity. No CVA tenderness. Results - Labs CBC & Chem 7: 04/09/18 12:48 Laboratory Results - last 24 hr 04/11/18 04/11/18 04/11/18 13:08 17:40 19:46 POC Glucose 115 H 120 H 101 Assessment and Plan - Assessment (1) Acute ischemic stroke Code(s): I63.9 - Cerebral infarction, unspecified Status: Acute - Plan 57 years old female with: Acute ischemic CVA s/p TPA Repeat Brain MRI negative Currently on ASA 325mg daily, Plavix 75mg daily PT/OT to treat and eval 2D echo with EF 55-60% Appreciate input from Neurology Pepcid for GI ulcer prophylaxis. Chemical DVT prophylaxis contraindicated after TPA. Benign labile Hypertension Resume outpatient medication start Clonidine 0.2mg PO Q6H PRN Nausea without any emesis Antiemetic PRN Anxiety/Depression Resume outpatient medications
[2018-04-12] MEDS: Senna/Docusate Sodium 8.6/50 MG Tablet PO SCH (12:42)
[2018-04-12] MEDS: Gabapentin 300 MG Capsule PO SCH ×2 (15:30→17:57)
[2018-04-12] MEDS: Sertraline 50 MG Tablet PO SCH (15:31)
[2018-04-13] MEDS: Chlorhexidine Gluconate 2% 1 Pack (2 Cloths) TOPICAL SCH (04:26)
[2018-04-13 04:28] VITALS: O2SAT 97
--- NOTE | 2018-04-13 09:31 | P.PN ---
Subjective Interval history: Follow up acute ischemic CVA s/p TPA 04/11/18-patient seen and examined; no longer with expressive aphasia. Repeat Brain MRI negative 04/12/18-patient seen and examined, complains of nausea without any emesis. BP labile. 04/13/18-patient seen and examined, stable, no complaint, no acute event overnight. Looking for discharge home today. Physical Exam Vital signs: Vital Signs 04/12/18 12:00 04/12/18 16:00 04/12/18 20:00 Temperature 98.1 F 98.2 F 98.0 F Pulse Rate 63 65 68 Respiratory Rate 14 16 18 Blood Pressure 150/79 H 124/61 130/61 Pulse Oximetry 94 L 96 98 04/12/18 23:57 04/13/18 00:00 04/13/18 02:57 Temperature 98.0 F Pulse Rate 65 55 L Respiratory Rate 20 18 Blood Pressure 133/69 Pulse Oximetry 96 04/13/18 04:00 04/13/18 04:27 04/13/18 08:00 Temperature 97.9 F 97.8 F Pulse Rate 59 L 50 L 64 Respiratory Rate 18 18 Blood Pressure 128/66 127/65 Pulse Oximetry 97 97 Intake & Output 04/12/18 04/13/18 04/13/18 18:59 06:59 18:59 Other: # Voids 1 Date of Last Bowel Movement 04/11/18 04/10/18 # Em[place] 4 Narrative: GENERAL: NAD SKIN: Warm and dry. HEAD: Normocephalic. EYES: No scleral icterus. No injection or drainage. NECK: Supple, trachea midline. No JVD or lymphadenopathy. CARDIOVASCULAR: Regular rate and rhythm without murmurs, gallops, or rubs. RESPIRATORY: Breath sounds equal bilaterally. No accessory muscle use. GASTROINTESTINAL: Abdomen soft, non-tender, nondistended. MUSCULOSKELETAL: No cyanosis, or edema. BACK: Nontender without obvious deformity. No CVA tenderness. Results - Labs CBC & Chem 7: 04/09/18 12:48 - Procedures None Assessment and Plan - Assessment (1) Acute ischemic stroke Code(s): I63.9 - Status: Acute - Plan 57 years old female with: Acute ischemic CVA s/p TPA Repeat Brain MRI negative Currently on ASA 325mg daily, Plavix 75mg daily PT/OT to treat and eval 2D echo with EF 55-60% Appreciate input from Neurology Pepcid for GI ulcer prophylaxis. Chemical DVT prophylaxis contraindicated after TPA. Benign labile Hypertension-resolved continue outpatient medication clonidine 0.2mg PO Q6H PRN Nausea without any emesis Antiemetic PRN Anxiety/Depression Continue outpatient medications
--- NOTE | 2018-04-13 09:34 | P.DS ---
Date of admission: 04/09/18 14:07 Primary care physician: UNKNOWN Brief History from admission: 57-year-old woman developed sudden onset of aphasia earlier today. This was associated with some nausea and vomiting. She arrived in the emergency department where she ruled in for TPA administration with subsequent resolution of the aphasia. She has residual right upper and lower extremity weakness from a previous stroke. There was no trauma associated with this event. She has been on aspirin therapy. DS: Diagnosis - Discharge Diagnosis (1) Acute ischemic stroke Status: Acute DS: Summary Hospital Course: While in hospital, patient was treated for: Acute ischemic CVA s/p TPA Repeat Brain MRI negative Treated with ASA 325mg daily, Plavix 75mg daily PT/OT to treat and eval 2D echo with EF 55-60% Appreciate input from Neurology Pepcid for GI ulcer prophylaxis. Chemical DVT prophylaxis contraindicated after TPA. Benign labile Hypertension-resolved outpatient medications BP meds were resumed Nausea without any emesis-resolved Antiemetic PRN Anxiety/Depression Outpatient medications were resumed - Time Spent with Patient Total time spent providing and/or coordinating discharge services: Less than 30 minutes - Quality: VTE Deep Vein Thrombosis/Pulmonary Embolism Present on Admission: No Exam Vital signs: Vital Signs 04/12/18 12:00 04/12/18 16:00 04/12/18 20:00 Temperature 98.1 F 98.2 F 98.0 F Pulse Rate 63 65 68 Respiratory Rate 14 16 18 Blood Pressure 150/79 H 124/61 130/61 Pulse Oximetry 94 L 96 98 04/12/18 23:57 04/13/18 00:00 04/13/18 02:57 Temperature 98.0 F Pulse Rate 65 55 L Respiratory Rate 20 18 Blood Pressure 133/69 Pulse Oximetry 96 04/13/18 04:00 04/13/18 04:27 04/13/18 08:00 Temperature 97.9 F 97.8 F Pulse Rate 59 L 50 L 64 Respiratory Rate 18 18 Blood Pressure 128/66 127/65 Pulse Oximetry 97 97 Intake & Output 04/12/18 04/13/18 04/13/18 18:59 06:59 18:59 Other: # Voids 1 Date of Last Bowel Movement 04/11/18 04/10/18 # Emeses 4 Narrative: GENERAL: NAD SKIN: Warm and dry. HEAD: Normocephalic. EYES: No scleral icterus. No injection or drainage. NECK: Supple, trachea midline. No JVD or lymphadenopathy. CARDIOVASCULAR: Regular rate and rhythm without murmurs, gallops, or rubs. RESPIRATORY: Breath sounds equal bilaterally. No accessory muscle use. GASTROINTESTINAL: Abdomen soft, non-tender, nondistended. MUSCULOSKELETAL: No cyanosis, or edema. BACK: Nontender without obvious deformity. No CVA tenderness. Results Procedures completed during hospitalization: None - Impressions ITS Impressions Chest X-Ray 04/09/18 12:39 CONCLUSION: No acute cardiopulmonary findings. Head CTA 04/09/18 12:39 CONCLUSION: 1. No large or central vessel occlusion identified in the intracranial circulation. 2. Results were called directly to Dr. Shayne Vallejo. Neck CTA 04/09/18 12:39 CONCLUSION: 1. Negative CTA Carotid. Head CT 04/10/18 12:54 CONCLUSION: 1. Stable noncontrast head CT. No acute hemorrhage is identified. 2. Stable generalized atrophy and periventricular white matter change characteristic of chronic microvascular ischemia. Old left lacune is again identified. . Head MRI 04/11/18 00:00 CONCLUSION: 1. No acute intracranial abnormality is identified. There are no findings to indicate recent ischemia and no acute blood products are visualized. 2. Chronic changes include generalized atrophy including old lacunar in the left periventricular region, chronic changes involving the corpus callosum, and a focus of remote hemorrhage in the left parietal high convexity. Discharge Plan - Discharge Disposition Patient Disposition: 01 Discharge Home - Discharge Condition Condition: Critical - Discharge Order Discharge Orders: Discharge Order (Routine); Ordered 04/13/18 Ordered By: Primitivo Kraus - Physicians Team Primary Care Provider: UNKNOWN, Attending Provider: Primitivo Kraus Other Providers: Robbie Vallejo MD, PhD
[2018-04-13] MEDS: Aspirin 325 MG Tablet PO SCH (10:11)
[2018-04-13] MEDS: Sertraline 50 MG Tablet PO SCH (10:12)
[2018-04-13] MEDS: Gabapentin 300 MG Capsule PO SCH ×2 (10:12→12:16)
[2018-04-13] MEDS: Famotidine 20 MG Tablet PO SCH (10:21)
[2018-04-13 12:39] VITALS: BP 140/69; PULSE 70; RESP 16; TEMP 98.5
[2018-04-15 13:52] LABS: Dil Russell Viper Venom Conf ( ND (NEGATIVE); Dil Russell Viper Venom Time M ND (CORRECTED); Lupus Anticoagulant PTT Screen 31 seconds (< OR = 40)
[2018-04-16 18:30] LABS: Factor V Leiden Mutation Negative (Negative); Protein C Antigen 110 % (70-150)
== END 2018-04-13 12:49 | disposition home or self-care (01) ==
LOC: NEPC 12:04 → NEDA 14:07 → N03 17:23 → N05 04-10 13:49
PROVIDERS: ADMIT Hospitalist; ATTEND Hospitalist